=== PATIENT | male | born 1980 | race Caucasian/White ===

== ENCOUNTER 2017-01-16 07:41 | Observation (INO) | payer MEDICAID ==
[2017-01-16 07:54] VITALS: RESP 16
[2017-01-16 08:01] LABS: % IMMATURE GRANULYOCYTES 0.5 % (0.0-1.1); ABSOLUTE IMMATURE GRANULOCYTES 0.03 10^3/uL (0.00-0.10); ADD DIFF? NO; ADD MORPH? NO; ADD SCAN? NO; ATYPICAL LYMPHOCYTE FLAG 0 (0-99); FRAGMENT RBC FLAG 0 (0-99); HEMATOCRIT 49.6 % (40.0-51.0); HEMOGLOBIN 17.2 g/dL (13.7-17.5); LEFT SHIFT FLG 0 (0-99); LIPEMIA HEMOLYSIS FLAG 90 (0-99); MEAN CELL HEMOGLOBIN CONCENTR. 34.7 g/dL (32.4-36.7); MEAN PLATELET VOLUME 8.9 fL (8.7-11.7); PLATELET CLUMPS FLAG 0 (0-99); PLATELET COUNT 306 10^3/uL (150-400); RED BLOOD CELL COUNT 5.22 10^6/uL (4.40-6.38); RED CELL DISTRIBUTION WIDTH 12.4 % (11.5-15.2)
--- NOTE | 2017-01-16 08:02 | CPEKG ---
Heart Rate: 96 RR Interval: 625 P-R Interval: 176 QRSD Interval: 82 QT Interval: 348 QTC Interval: 440 P [place]: 55 QRS [place]: 29 T Wave [place]: 36 EKG Severity - NORMAL ECG - EKG Impression: SINUS RHYTHM Electronically Signed By: Claire Cazares 16-Jan-2017 16:53:33
[2017-01-16 08:25] LABS: ANION GAP 12 mEq/L (8-16); CALCIUM 10.5 mg/dL (8.5-10.4); CARBON DIOXIDE 24 mEq/l (22-31); CHLORIDE 103 mEq/L (97-110); CREATININE 0.8 mg/dL (0.7-1.3); GLOMERULAR FILTRATION RATE > 60; GLUCOSE 100 mg/dL (70-100); POTASSIUM 4.2 mEq/L (3.5-5.2); SODIUM 139 mEq/L (134-144)
[2017-01-16 08:36] LABS: TROPONIN I < 0.012 ng/mL (0-0.034)
--- NOTE | 2017-01-16 08:40 | EDPHY ---
HPI/HX/ROS/PE/MDM Narrative: CHIEF COMPLAINT: Chest discomfort HISTORY OF PRESENT ILLNESS: This patient is a 36 year old man, with a history of anxiety and family history of coronary disease, presenting with acute left- sided chest pressure, onset last night while at work. The pressure has been constant and waxing and waning since onset, rated 5-6/10 at the most severe. The chest pressure caused him to become anxious, which precipitated mild shortness of breath. The patient's anxiety improved once EMS arrived, and subsequently the chest pressure also improved. The pressure is dull and mild in severity currently. The patient's past anxiety attacks have presented with hyperventilation and hand cramping. He had no hand cramping or paresthesia last night. He has never had chest discomfort associated with anxiety in the past. Patient denies any GI symptoms. REVIEW OF SYSTEMS: Aside from elements discussed in the HPI, a comprehensive 10-point review of systems was reviewed and is negative. Insomnia for the last two nights, onset after using methamphetamine two days ago. PAST MEDICAL HISTORY: Hypertension (previously on medication, but on none currently), no diagnosed history of hyperlipidemia, denies history of thromboembolic disease. FAMILY MEDICAL HISTORY: Father had [place] at 53 years old SOCIAL HISTORY: Works in a [employer] kitchen, in the overnight shift. PCP is at the [facility]. Non-smoker, alcoholism, admits to methamphetamine two days ago, denies consistent illicit drug abuse. VITAL SIGNS: Reviewed by me GENERAL: Well-developed, well-nourished, slightly anxious, no respiratory distress. HEENT: Atraumatic. Eyes: No icterus, no injection. Mouth: moist mucous membranes. No erythema or lesions. Neck: supple with no adenopathy. LUNGS: Clear to auscultation bilaterally, no wheezes, rhonchi or rales. CARDIAC: Tachycardic and regular, no rubs, murmurs or gallops. ABDOMEN: Soft, nontender, nondistended, bowel sounds normal. BACK: No CVA tenderness. EXTREMITIES: No trauma. Bilateral lower extremity erythema with trace edema. Range of motion is normal throughout. NEURO: Alert and oriented, grossly nonfocal. SKIN: Warm and dry, no rash. PSYCHIATRIC: Normal mentation, no agitation. Portions of this note were transcribed by a medical laboratory scientist. I personally performed a history, physical exam, medical decision making, and confirmed accuracy of information the transcribed note. ED Course: An IV has been established. He received 324mg aspirin PO by EMS. Chest x-ray interpreted by myself demonstrates query bronchitis. 12-lead EKG interpreted by myself demonstrates sinus rhythm, rate 96, no acute ischemic changes. See formal report in [facility] for interpretation. Troponin is negative, bloodwork is normal. With the patient's family history and history of methamphetamine abuse, I have paged cardiology for consult and to arrange further testing. I consulted with Dr. Acosta at 0930. He recommends admission to [facility] for inpatient workup. The patient will be admitted. 0940: I consulted with the hospitalist service. Dr. Duron accepts admission. MDM: After history and physical examination, the differential for chest pain was considered, including but not limited to, myocardial ischemia, acute coronary syndrome, pulmonary embolus, chest wall pain, pleural inflammation and pulmonary infectious causes. - Data Points Imaging Results: Imaging Impressions Chest X-Ray 01/16/17 07:56 Impression: Chest negative for acute abnormality. Laboratory Results: Laboratory Results 01/16/17 07:50 01/16/17 07:50 01/16/17 01/16/17 07:50 07:50 WBC 6.02 10^3/uL 10^3/uL (3.80-9.50) RBC 5.22 10^6/uL 10^6/uL (4.40-6.38) Hgb 17.2 g/dL g/dL (13.7-17.5) Hct 49.6 % % (40.0-51.0) MCV 95.0 fL fL (81.5-99.8) MCH 33.0 pg pg (27.9-34.1) MCHC 34.7 g/dL g/dL (32.4-36.7) RDW 12.4 % % (11.5-15.2) Plt Count 306 10^3/uL 10^3/uL (150-400) MPV 8.9 fL fL (8.7-11.7) Neut % (Auto) 57.3 % % (39.3-74.2) Lymph % (Auto) 27.6 % % (15.0-45.0) [place] % (Auto) 13.3 % H % (4.5-13.0) Eos % (Auto) 0.8 % % (0.6-7.6) Baso % (Auto) 0.5 % % (0.3-1.7) Nucleat RBC Rel Count 0.0 % % (0.0-0.2) Absolute Neuts (auto) 3.45 10^3/uL 10^3/uL (1.70-6.50) Absolute Lymphs (auto) 1.66 10^3/uL 10^3/uL (1.00-3.00) Absolute Monos (auto) 0.80 10^3/uL 10^3/uL (0.30-0.80) Absolute Eos (auto) 0.05 10^3/uL 10^3/uL (0.03-0.40) Absolute Basos (auto) 0.03 10^3/uL 10^3/uL (0.02-0.10) Absolute Nucleated RBC 0.00 10^3/uL 10^3/uL (0-0.01) Immature Gran % 0.5 % % (0.0-1.1) Immature Gran # 0.03 10^3/uL 10^3/uL (0.00-0.10) Sodium 139 mEq/L mEq/L (134-144) Potassium 4.2 mEq/L mEq/L (3.5-5.2) Chloride 103 mEq/L mEq/L (97-110) Carbon Dioxide 24 mEq/l mEq/l (22-31) Anion Gap 12 mEq/L mEq/L (8-16) BUN 11 mg/dL mg/dL (7-23) Creatinine 0.8 mg/dL mg/dL (0.7-1.3) Estimated GFR > 60 Glucose 100 mg/dL mg/dL (70-100) Calcium 10.5 mg/dL H mg/dL (8.5-10.4) Troponin I < 0.012 ng/mL ng/mL (0-0.034) Medications Given: Discontinued Medications Sodium Chloride (Ns) 1,000 mls @ 0 mls/hr IV ONCE ONE PRN Reason: Wide Open Stop: 01/16/17 08:56 Last Admin: 01/16/17 09:05 Dose: 1,000 mls Sodium Chloride (Ns) 1,000 mls @ 3,000 mls/hr IV ONCE ONE Stop: 01/16/17 10:16 Last Admin: 01/16/17 11:40 Dose: Not Given Lorazepam (Ativan Injection) 1 mg IVP EDNOW ONE Stop: 01/16/17 08:57 Last Admin: 01/16/17 09:05 Dose: 1 mg General Time Seen by Provider: 01/16/17 08:12 Initial Vital Signs: Initial Vital Signs Temperature (C) 36.8 C 01/16/17 07:53 Heart Rate 89 01/16/17 07:53 Respiratory Rate 16 01/16/17 07:53 Blood Pressure 164/102 H 01/16/17 07:53 O2 Sat (%) 94 01/16/17 07:53 O2 Delivery Mode Room Air Allergies/Adverse Reactions: No Known Allergies Allergy (Verified 11/07/14 22:03) Home Medications: Medication Instructions Recorded NK [No Known Home Meds] 01/16/17 Departure - Departure Disposition: [facility] Inpatient Acute Clinical Impression: Chest pain Qualifiers: Chest pain type: other chest pain Qualified Code(s): R07.89 - Other chest pain Condition: Fair Report Scribed for: Claire Cazares Report Scribed by: Yady Sahu Date of Report: 01/16/17 Time of Report: 08:51
[2017-01-16] MEDS ORDERED: NS 1,000 ML IV ONE ×2 (08:55→09:57)
[2017-01-16] MEDS ORDERED: LORazepam 2 MG/ML INJ IVP ONE (08:56)
[2017-01-16] MEDS ORDERED: ONDANSETRON DISINTEGRATING 4 MG TAB PO PRN (09:57)
[2017-01-16] MEDS ORDERED: ACETAMINOPHEN 325 MG TAB PO PRN (09:57)
[2017-01-16] MEDS ORDERED: ONDANSETRON 4 MG/2 ML VIAL IVP PRN (09:57)
[2017-01-16 10:45] VITALS: BP 121/84; PULSE 77; TEMP 97.5; O2SAT 99
--- NOTE | 2017-01-16 12:18 | GHP ---
[f rep st] HISTORY AND PHYSICAL DATE OF ADMISSION: 01/16/2017 CHIEF COMPLAINT: Chest pain. HISTORY OF PRESENT ILLNESS: A 36-year-old male with no significant past medical history, who presen ts with complaints of chest pain, substernal pressure-like, that began approximately 24 hours prior to presentation. Patient reports some radiation to his left arm associated and shortness of breath. Denied any associated palpitations, lightheadedness, vision changes. Denied any nausea, vomiting, abdominal pain, dysuria, hematuria, lower extremity edema or rashes. Did not note any subjective f haven or chills. Of note, the patient had used methamphetamines prior to developing his symptoms. He believes it was close to 24 hours prior, but cannot be specific. The patient reports that he walls s not regularly use stimulants. This was a unique experience for him. PAST MEDICAL HISTORY: None. SOCIAL HISTORY: Negative for tobacco. Patient has a history of alcohol abuse. Reports no recent c onsumption. Reports no regular illicit drug use, but was provided some methamphetamines which he us ed prior to developing his symptoms. Otherwise denies other illicit drugs or marijuana. FAMILY HISTORY: Positive for father who had an [place] in his 50s. REVIEW OF SYSTEMS: A 10-point review of systems is negative with the exception of that reported in the HPI. PHYSICAL EXAMINATION: VITAL SIGNS: Blood pressure 121/84, heart rate 77, respiratory rate 16, temp erature 36.4, 99% on 2 L. GENERAL: This is a healthy-appearing male in no acute distress. HEENT: Eye exam is negative for any icterus. Mucous membranes appear moist. CARDIAC: Patient has regula r rate and rhythm. No murmurs, gallops or rubs. PULMONARY: Patient has good respiratory effort. He is clear to auscultation bilaterally. GASTROINTESTINAL: Positive bowel sounds. Abdomen is soft and nontender in all 4 quadrants. MUSCULOSKELETAL: Negative for any lower extremity edema. SKIN: Negative for any rashes. NEUROLOGIC: Patient is somnolent on my examination, but oriented x3. P SYCHIATRIC: Cooperative on interview and examination. DATA: White count is 6.0, hematocrit 49.6, platelets of 306. Troponin less than 0.012. Sodium 139 , creatinine 0.8. Chest x-ray, which I personally reviewed and interpreted, shows no acute infiltra adri or edema. EKG, which I personally reviewed and interpreted, shows sinus rhythm with a normal ax is and normal intervals. No acute ST-T changes. ASSESSMENT AND PLAN: This is a 36-year-old male presenting with chest pain. 1. Acute chest pain. Suspect likely methamphetamine related. The patient does have a preceding he family history; however, no diabetes, hypertension or hyperlipidemia. We will admit the patient fo r serial troponins and EKGs, and monitor on telemetry. If the patient rules out, would recommend th at he be discharged for outpatient stress testing. After the methamphetamines are out of his system . 2. Polysubstance abuse. We will send a urine drug screen so we can truly understand what the patie nt has in his system. I did discuss this briefly with him, the risk of developing complications rel ated to stimulate use. Not positive the patient truly grasped the message I was conveying. 3. Prophylaxis. Patient can ambulate. 4. Diet. Cardiac. 5. Disposition. I expect him less than 2 midnights. If patient rules out, he will be safe for dis position home. I discussed the case with the emergency room physician. Patient would be appropriate for [facility]. /[id number]/MODL
[2017-01-16 13:48] LABS: PHENCYCLIDINE URINE BCH < 6 ng/ml (NEGATIVE); PHENCYCLIDINE URINE BCH NEGATIVE (NEGATIVE); TETRAHYDROCANNABINOL URINE < 5 ng/mL (NEGATIVE); TETRAHYDROCANNABINOL URINE NEGATIVE (NEGATIVE)
--- NOTE | 2017-01-16 15:42 | GDS ---
[f rep st] DISCHARGE SUMMARY DISCHARGE DIAGNOSES: Include: 1. Chest pain thought secondary to methamphetamine abuse. 2. Polysubstance abuse. HISTORY OF PRESENT ILLNESS: A 36-year-old male who presents with substernal chest discomfort after using methamphetamines. For details of the patient's initial presentation, please see the history a nd physical dated 01/16/2017. CONSULTATIVE SERVICES: Cardiology was curb-sided from the emergency department. PROCEDURES: None. HOSPITAL COURSE: By issue: 1. Acute chest pain. Patient had drug screen test with extremely high levels of amphetamines in hi s urine. His troponin, EKG and telemetry monitoring remained normal. The patient is being discharg ed with strong recommendations against ongoing use of stimulant illicit drugs and recommendations th at he have stress testing performed as an outpatient at [facility] when the drugs are out of his system. 2. Polysubstance abuse. The patient has extremely high levels of amphetamines in his urine, which is clearly quite dangerous. We did discuss the importance of cessation with this patient, ongoing. MEDICATIONS AT THE TIME OF DISPOSITION: Please reference medication reconciliation printed on 01/16. FOLLOWUP APPOINTMENTS: Include with [facility] in the next 2 weeks time after complete cessation of illicit drug use, so that we can verify bed amphetamines are out of his system. I spent greater than 30 minutes in the planning and coordination of this discharge. /[id number]/MODL
== END 2017-01-16 17:05 | disposition home or self-care (01) ==
LOC: EDUNIT# → F2W 10:22
PROVIDERS: ADMIT Internal Medicine; ATTEND Hospitalist
DX: R07.9 Chest pain, unspecified (principal); F15.10 Other stimulant abuse, uncomplicated; F41.9 Anxiety disorder, unspecified; Z82.49 Family history of ischemic heart disease and other diseases of the circulatory system
CPT/HCPCS: 71020; 93005; G0378; 80307; 96374; G0480; J2060

== ENCOUNTER 2017-02-20 03:22 | Emergency (ER) | payer MEDICAID ==
[2017-02-20 03:33] LABS: % IMMATURE GRANULYOCYTES 0.3 % (0.0-1.1); ABSOLUTE IMMATURE GRANULOCYTES 0.02 10^3/uL (0.00-0.10); ADD DIFF? NO; ADD MORPH? NO; ADD SCAN? NO; ATYPICAL LYMPHOCYTE FLAG 10 (0-99); FRAGMENT RBC FLAG 0 (0-99); HEMATOCRIT 47.9 % (40.0-51.0); HEMOGLOBIN 16.2 g/dL (13.7-17.5); LEFT SHIFT FLG 0 (0-99); LIPEMIA HEMOLYSIS FLAG 90 (0-99); MEAN CELL HEMOGLOBIN 32.9 pg (27.9-34.1); MEAN CELL HEMOGLOBIN CONCENTR. 33.8 g/dL (32.4-36.7); MEAN CELL VOLUME 97.2 fL (81.5-99.8); MEAN PLATELET VOLUME 9.3 fL (8.7-11.7); PLATELET CLUMPS FLAG 0 (0-99); PLATELET COUNT 262 10^3/uL (150-400); RED BLOOD CELL COUNT 4.93 10^6/uL (4.40-6.38); RED CELL DISTRIBUTION WIDTH 12.8 % (11.5-15.2)
[2017-02-20 03:36] VITALS: TEMP 97.9
--- NOTE | 2017-02-20 03:36 | CPEKG ---
Heart Rate: 94 RR Interval: 638 P-R Interval: 176 QRSD Interval: 84 QT Interval: 352 QTC Interval: 441 P [place]: 45 QRS [place]: 24 T Wave [place]: 27 EKG Severity - NORMAL ECG - EKG Impression: SINUS RHYTHM Electronically Signed By: Shane Lynch 20-Feb-2017 13:54:07
[2017-02-20 03:43] LABS: ANION GAP 10 mEq/L (8-16); CARBON DIOXIDE 30 mEq/l (22-31); CHLORIDE 104 mEq/L (97-110); GLOMERULAR FILTRATION RATE > 60; GLUCOSE 66 mg/dL (70-100); POTASSIUM 3.7 mEq/L (3.5-5.2); SODIUM 144 mEq/L (134-144)
[2017-02-20 03:55] LABS: TROPONIN I < 0.012 ng/mL (0-0.034)
--- NOTE | 2017-02-20 05:23 | EDPHY ---
H & P Stated Complaint: CP vs anxiety HPI/ROS: HPI The patient presents with chest pain which has been present for the last several hours which started slowly and is getting progressively worse. He says the pain began at about 3:00 p.m., he describes it as a left-sided pressure which is moderate in severity without radiation. He does admit to drinking alcohol and using methamphetamine recently. He says this pain feels similar to his prior episodes. He was admitted January 16 for similar pain in the setting of methamphetamine abuse. His workup was unremarkable. He was advised to stop using. [facility]. He is concerned because for the last 1 week he has noticed bilateral lower extremity edema. He does not have any shortness of breath, dyspnea on exertion, orthopnea or PND.. REVIEW OF SYSTEMS Constitutional: No fever, no chills. Eyes: No discharge. ENT: No sore throat. Cardiovascular: Positive for chest pain, no palpitations. Respiratory: No cough, no shortness of breath. Gastrointestinal: No abdominal pain, no vomiting. Genitourinary: No hematuria. Musculoskeletal: No back pain. Skin: No rashes. Neurological: No headache. PMHx: Anxiety Soc Hx: Alcohol use, methamphetamine use PHYSICAL General Appearance: Alert, no distress Eyes: Pupils equal and round no pallor or injection ENT, Mouth: Mucous membranes moist Respiratory: There are no retractions, lungs are clear to auscultation Cardiovascular: Regular rate and rhythm Gastrointestinal: Abdomen is soft and non-tender, no masses, bowel sounds normal Neurological: A&O, moves all extremities Skin: Warm and dry, no rashes Musculoskeletal: Neck is supple non tender Extremities: symmetrical, trace lower extremity edema bilaterally Psychiatric: Patient is oriented X 3, there is no agitation Source: Patient, EMS - Personal History Current Tetanus Diphtheria and Acellular Pertussis (TDAP): Yes Tetanus Vaccine Date: 01/30/13 - Medical/Surgical History Hx Asthma: No Hx Chronic Respiratory Disease: No Hx Diabetes: No Hx Cardiac Disease: No Hx Renal Disease: No Hx Cirrhosis: No Hx Alcoholism: Yes Hx HIV/AIDS: No Hx Splenectomy or Spleen Trauma: No Other PMH: BIPOLAR, ANXIETY, ETOH WD SEIZURES. - Social History Smoking Status: Never smoked Constitutional: Initial Vital Signs Temperature (C) 36.6 C 05/27/17 03:28 Heart Rate 92 02/20/17 03:28 Respiratory Rate 16 02/20/17 03:28 Blood Pressure 144/106 H 02/20/17 03:28 O2 Sat (%) 96 02/20/17 03:28 O2 Delivery Mode Room Air Allergies/Adverse Reactions: No Known Allergies Allergy (Verified 02/20/17 03:28) Home Medications: Medication Instructions Recorded NK [No Known Home Meds] 01/16/17 Medical Decision Making - Diagnostics EKG Interpretation: EKG: Complete interpretation has been separately recorded in the [facility] archive. Summary impression: Normal sinus rhythm Imaging Results: chest x-ray one view shows no cardiomegaly, no infiltrate, interpreted by me, radiology interpretation is pending. Differential Diagnosis: This is a 36-year-old man with history of methamphetamine induced chest pain who presents from home with chest pain for the last 1 day. This feels similar to his prior episodes. He was recently admitted for this and had a normal evaluation. Differential diagnosis includes methamphetamine abuse, Anxiety, less likely ACS, pulmonary embolism, pneumothorax. In the emergency room, the patient was monitored. He had no recurrence of his chest pain actually felt much better. labs and studies, including troponin were all normal. I have encouraged him to stop his drug use as I feel this is contributing to his pain. He did mention that he has some swelling of his lower extremities and I have examined him he has 1+ lower extremity edema. He does not have any cardiomegaly on his chest x-ray and a doubt he has CHF. This can be followed up as an outpatient with [facility]. - Data Points Laboratory Results: Laboratory Results 02/20/17 03:20 02/20/17 03:20 Departure - Departure Disposition: Home, Routine, Self-Care Clinical Impression: Chest pain Qualifiers: Chest pain type: unspecified Qualified Code(s): R07.9 - Chest pain, unspecified Condition: Good Instructions: Chest Pain (ED) Additional Instructions: Please stop using methamphetamine. This is likely contributing to her chest pain. Referrals: [facility] [Provider Group] - As per Instructions
[2017-02-20 05:41] VITALS: BP 118/86; PULSE 88; RESP 20; O2SAT 97
== END 2017-02-20 05:40 | disposition home or self-care (01) ==
LOC: EDUNIT#
DX: R07.89 Other chest pain (principal)

== ENCOUNTER 2017-04-04 08:10 | Emergency (ER) | payer MEDICAID ==
[2017-04-04 08:25] VITALS: RESP 16; TEMP 98.6
--- NOTE | 2017-04-04 08:37 | CPEKG ---
Heart Rate: 101 RR Interval: 594 P-R Interval: 184 QRSD Interval: 84 QT Interval: 336 QTC Interval: 436 P [place]: 57 QRS [place]: 40 T Wave [place]: 41 EKG Severity - OTHERWISE NORMAL ECG - EKG Impression: SINUS TACHYCARDIA Electronically Signed By: Rafael Jean 04-Apr-2017 09:30:30
[2017-04-04] MEDS ORDERED: NS 1,000 ML IV ONE (08:45)
[2017-04-04] MEDS ORDERED: LORazepam 2 MG/ML INJ IVP ONE (08:45)
--- NOTE | 2017-04-04 08:45 | EDPHY ---
H & P Stated Complaint: L cp sob on and off x 2 mo. worse x 2 days, bilat lle edema x 1 mo - Personal History Current Tetanus/Diphtheria Vaccine: Unsure Current Tetanus Diphtheria and Acellular Pertussis (TDAP): Unsure Tetanus Vaccine Date: 01/30/13 - Medical/Surgical History Hx Asthma: No Hx Chronic Respiratory Disease: No Hx Diabetes: No Hx Cardiac Disease: No Hx Renal Disease: No Hx Cirrhosis: No Hx Alcoholism: Yes Hx HIV/AIDS: No Hx Splenectomy or Spleen Trauma: No Other PMH: BIPOLAR, ANXIETY, etoh w/d seizures - Social History Smoking Status: Never smoked Time Seen by Provider: 04/04/17 08:27 HPI/ROS: CHIEF COMPLAINT: Chest pain, bilateral lower extremity edema x2 months HISTORY OF PRESENT ILLNESS: 36-year-old male with prior history of alcoholism, arrives via private vehicle stating that for the past 2 months he has been experiencing nonexertional, nonpleuritic chest pain without dyspnea as well as bilateral lower extremity edema. He has been seen by his primary care provider [facility] but informs me that there recent blood work that was obtained was lost. He has by enlarged decreased his daily alcohol use, states that he has also started using daily methamphetamine tablets in order to moderate his symptoms and and/or to function and go to work. He denies: Dyspnea, back pain , flank pain, urinary abnormality, headache, syncope, near syncope, diaphoresis , exertional chest pain or exertional dyspnea . PRIMARY CARE PROVIDER: [facility] REVIEW OF SYSTEMS: A ten point review of systems was performed and is negative with the exception of the items mentioned in the HPI PAST MEDICAL & SURGICAL HISTORY: Alcoholism SOCIAL HISTORY: Daily alcohol use. Daily methamphetamine use PHYSICAL EXAM (Prior to examination, patient consented to physical exam, hands were washed and my usual and customary physical exam procedures followed) 1) GENERAL: Well-developed, well-nourished, alert and oriented. Appears anxious. Rapid speech.. 2) HEAD: Normocephalic, atraumatic 3) HEENT: Pupils equal, round, reactive to light bilaterally. Sclera anicteric. 4) NECK: Full range of motion, no a bruit. 5) LUNGS: Clear auscultation bilaterally, no wheezes, no rhonchi, no retractions. 6) HEART: Regular rate and rhythm, no murmur, no heave, no gallop. 7) ABDOMEN: No guarding, no rebound, no focal tenderness, negative McBurney's, negative King's, negative Rovsing's, negative peritoneal sign, 8) MUSCULOSKELETAL: Moving all extremities, no focal areas of tenderness, no obvious trauma. No peripheral edema or discoloration. Negative Homans no palpable cord bilaterally. DP PT pulses present and brisk bilaterally. Normal color normal temperature distally. Brisk capillary refill 9) BACK: No CVA tenderness. 10) SKIN: No rash, no petechiae. 11) Psychiatric: Patient is oriented X 3, there is no agitation. DIFFERENTIAL DIAGNOSIS: In no particular order, including but not limited to myocardial ischemia, pulmonary embolus, chest wall pain, pleural inflammation and pulmonary infectious causes. (Isaiah Rivera) Constitutional: Initial Vital Signs Temperature (C) 37.0 C 04/04/17 08:20 Heart Rate 107 H 04/04/17 08:20 Respiratory Rate 16 04/04/17 08:20 Blood Pressure 118/87 H 04/04/17 08:20 O2 Sat (%) 97 04/04/17 08:20 O2 Delivery Mode Room Air Allergies/Adverse Reactions: No Known Allergies Allergy (Verified 02/20/17 03:28) Home Medications: Medication Instructions Recorded NK [No Known Home Meds] 01/16/17 Medical Decision Making - Diagnostics EKG Interpretation: EKG interpreted by me shows sinus tachycardia. Normal interval and axis. QRS is normal there is no significant ST elevation or depression. No arrhythmia. Ventricular response is 101 (Rafael Jean) Imaging Results: Imaging Impressions Chest X-Ray 04/04/17 08:43 IMPRESSION: Normal chest x-ray. ED Course/Re-evaluation: This patient has been re-evaluated with serial examinations case discussed with secondary supine position Dr. Rafael Jean in the ER. The patient complains of ongoing chest pain for the past 2 months in the presence of daily alcohol and daily methamphetamine use. Denies cocaine use. Multiple diagnostic studies were obtained on the patient including negative troponin, negative BNP, negative D-dimer negative chest x-ray, sinus tachycardia on the EKG. I think that [place] is less than likely in this patient. Doubt CHF. Doubt pulmonary embolus in the presence of negative D-dimer and low to moderate pretest suspicion. Think the patient can be discharged. I recommended alcohol moderation cessation methamphetamine use. He has an upcoming appointment the [facility] where he will speak with his care provider there regarding cessation of this also has upcoming appoint with psychiatrist Dr. Fernández. He denies suicidal homicidal ideation. He feels comfortable being discharged. Usual and customary discharge precautions and instructions provided (Isaiah Rivera) I did not see this patient while he was in the emergency department. However his care was discussed with the PA while the patient was in the department. I agree with treatment plan and management (Rafael Jean) - Data Points Laboratory Results: Laboratory Results 04/04/17 08:25 04/04/17 08:25 04/04/17 04/04/17 04/04/17 08:25 08:25 08:25 WBC 7.27 10^3/uL 10^3/uL (3.80-9.50) RBC 4.63 10^6/uL 10^6/uL (4.40-6.38) Hgb 15.5 g/dL g/dL (13.7-17.5) Hct 44.0 % % (40.0-51.0) MCV 95.0 fL fL (81.5-99.8) MCH 33.5 pg pg (27.9-34.1) MCHC 35.2 g/dL g/dL (32.4-36.7) RDW 13.1 % % (11.5-15.2) Plt Count 249 10^3/uL 10^3/uL (150-400) MPV 8.8 fL fL (8.7-11.7) Neut % (Auto) 49.7 % % (39.3-74.2) Lymph % (Auto) 31.6 % % (15.0-45.0) [place] % (Auto) 12.4 % % (4.5-13.0) Eos % (Auto) 5.4 % % (0.6-7.6) Baso % (Auto) 0.6 % % (0.3-1.7) Nucleat RBC Rel Count 0.0 % % (0.0-0.2) Absolute Neuts (auto) 3.62 10^3/uL 10^3/uL (1.70-6.50) Absolute Lymphs (auto) 2.30 10^3/uL 10^3/uL (1.00-3.00) Absolute Monos (auto) 0.90 10^3/uL H 10^3/uL (0.30-0.80) Absolute Eos (auto) 0.39 10^3/uL 10^3/uL (0.03-0.40) Absolute Basos (auto) 0.04 10^3/uL 10^3/uL (0.02-0.10) Absolute Nucleated RBC 0.00 10^3/uL 10^3/uL (0-0.01) Immature Gran % 0.3 % % (0.0-1.1) Immature Gran # 0.02 10^3/uL 10^3/uL (0.00-0.10) D-Dimer < 0.27 ug/mLFEU ug/mLFEU (0.00-0.50) Sodium 144 mEq/L mEq/L (134-144) Potassium 3.7 mEq/L mEq/L (3.5-5.2) Chloride 108 mEq/L mEq/L (97-110) Carbon Dioxide 21 mEq/l L mEq/l (22-31) Anion Gap 15 mEq/L mEq/L (8-16) BUN 12 mg/dL mg/dL (7-23) Creatinine 0.9 mg/dL mg/dL (0.7-1.3) Estimated GFR > 60 Glucose 79 mg/dL mg/dL (70-100) Calcium 9.3 mg/dL mg/dL (8.5-10.4) Troponin I < 0.012 ng/mL ng/mL (0-0.034) NT-Pro-B Natriuret Pep < 11 pg/mL pg/mL (0-125) Medications Given: Discontinued Medications Sodium Chloride (Ns) 1,000 mls @ 0 mls/hr IV ONCE ONE PRN Reason: Wide Open Stop: 04/04/17 08:46 Last Admin: 04/04/17 09:25 Dose: 1,000 mls Lorazepam (Ativan Injection) 1 mg IVP EDNOW ONE Stop: 04/04/17 08:46 Last Admin: 04/04/17 09:25 Dose: 1 mg Departure - Departure Disposition: Home, Routine, Self-Care Clinical Impression: Chest pain Qualifiers: Chest pain type: other chest pain Qualified Code(s): R07.89 - Other chest pain Condition: Good Instructions: Chest Pain (ED) Additional Instructions: Seek medical attention if you develop new or worsening chest pain, if you develop new or worsening shortness of breath, or any other symptoms that concern you. Please consider long-term sobriety from alcohol and please discontinue methamphetamine use Referrals: Natalya Titus PAC [Primary Care Provider] - As per Instructions
[2017-04-04 08:57] LABS: ANION GAP 15 mEq/L (8-16); CALCIUM 9.3 mg/dL (8.5-10.4); CARBON DIOXIDE 21 mEq/l (22-31); CHLORIDE 108 mEq/L (97-110); CREATININE 0.9 mg/dL (0.7-1.3); GLOMERULAR FILTRATION RATE > 60; GLUCOSE 79 mg/dL (70-100); POTASSIUM 3.7 mEq/L (3.5-5.2); SODIUM 144 mEq/L (134-144)
[2017-04-04 09:05] LABS: % IMMATURE GRANULYOCYTES 0.3 % (0.0-1.1); ABSOLUTE IMMATURE GRANULOCYTES 0.02 10^3/uL (0.00-0.10); ADD DIFF? NO; ADD MORPH? NO; ADD SCAN? NO; ATYPICAL LYMPHOCYTE FLAG 0 (0-99); FRAGMENT RBC FLAG 0 (0-99); HEMOGLOBIN 15.5 g/dL (13.7-17.5); LEFT SHIFT FLG 0 (0-99); LIPEMIA HEMOLYSIS FLAG 90 (0-99); MEAN CELL HEMOGLOBIN 33.5 pg (27.9-34.1); MEAN CELL HEMOGLOBIN CONCENTR. 35.2 g/dL (32.4-36.7); MEAN PLATELET VOLUME 8.8 fL (8.7-11.7); PLATELET CLUMPS FLAG 10 (0-99); PLATELET COUNT 249 10^3/uL (150-400); RED BLOOD CELL COUNT 4.63 10^6/uL (4.40-6.38); RED CELL DISTRIBUTION WIDTH 13.1 % (11.5-15.2)
[2017-04-04 09:09] LABS: TROPONIN I < 0.012 ng/mL (0-0.034)
[2017-04-04 10:39] VITALS: BP 117/85; PULSE 80; O2SAT 96
== END 2017-04-04 10:39 | disposition home or self-care (01) ==
DX: R07.89 Other chest pain (principal)
CPT/HCPCS: 96374; J2060

== ENCOUNTER 2017-04-05 01:00 | Emergency (ER) | payer MEDICAID ==
[2017-04-05] MEDS ORDERED: LORazepam 2 MG/ML INJ IVP ONE (01:03)
[2017-04-05] MEDS ORDERED: NS 2,000 ML IV ONE (01:03)
--- NOTE | 2017-04-05 01:08 | EDPHY ---
H & P HPI/ROS: HPI CHIEF COMPLAINT: Anxiety, methamphetamine abuse, alcohol HISTORY OF PRESENT ILLNESS: This is a 36-year-old male, was here earlier in the day with anxiety methamphetamine use and alcohol. Presents back to the emergency room by EMS after being discharged from the emergency room he went to his house and his with his buddies and smoked a large amount of methamphetamine as well as drank alcohol. He now presents to the emergency room stating that he feels very anxious any seeing things. Denies any chest pain or shortness of breath. It is noted he is tachycardic and anxious upon arrival. Hypertensive. Past Medical History: Methamphetamine abuse, alcohol abuse, polysubstance abuse Past Surgical History: No recent surgery Social History: Daily use of alcohol, daily use of methamphetamine Family History: Noncontributory ROS REVIEW OF SYSTEMS: A comprehensive 10 point review of systems is otherwise negative aside from elements mentioned in the history of present illness. Exam Constitutional appears anxious triage nursing summary reviewed, vital signs reviewed, awake/alert. Eyes normal conjunctivae and sclera, EOMI, PERRLA. HENT normal inspection, atraumatic, moist mucus membranes, no epistaxis, neck supple/ no meningismus, no raccoon eyes. Respiratory clear to auscultation bilaterally, normal breath sounds, no respiratory distress, no wheezing. Cardiovascular tachycardic, regular rhythm, no murmur, no edema, distal pulses normal. Gastrointestinal soft, non-tender, no rebound, no guarding, normal bowel sounds, no distension, no pulsatile mass. Genitourinary no CVA tenderness. Musculoskeletal no midline vertebral tenderness, full range of motion, no calf swelling, no tenderness of extremities, no meningismus, good pulses, neurovascularly intact. Skin pink, warm, & sweaty, no rash, skin atraumatic. Neurologic awake, alert and oriented x 3, AAOx3, moves all 4 extremities equally, motor intact, sensory intact, CN II-XII intact, normal cerebellar, normal vision, normal speech. Psychiatric anxious Heme/Lymph/Immune no lymphadenopathy. Differential Diagnosis: Includes but is not limited to in a particular order, methamphetamine abuse, electrolyte disturbance, dehydration, acute anxiety, alcohol intoxication Medical Decision Making: Plan for this patient IV establishment, check blood work, full cardiac surgeon, EKG due to tachycardia, IV fluid bolus, IV Ativan for anxiety. Drug screen. Re-evaluation: 0118AM: Patient's up out of his room he pulled out his IV. He ripped off the monitor. He screaming at staff in the hallway. I asked him kindly please to go back to his room so that we can help him. I have ordered him 2 mg IV Ativan for acute anxiety and agitation. EKG interpretation by me on record in [employer] system. Impression time of EKG 1:25 a.m., sinus rhythm rate of 88. No acute ischemic changes appreciated. 0158AM: Patient was given 2 mg IV Ativan. Current heart rate 92. Blood pressure 153/90. Pulse ox 98% room air. Patient is sleeping. 0338AM: Re-evaluation at this time this patient is resting comfortably normal vital signs. Ambulated well to the bathroom without any difficulty. Tells me his eye is completely resolved after 2 mg IV Ativan. He is in no acute distress. Resting comfortably. He is agreeable on discharge. Again I did recommend that he stop doing methamphetamine as it can be dangerous cause acute psychosis cause tachycardia and cause anxiety. He understands refrain from taking methamphetamine. Source: Patient, EMS - Personal History Tetanus Vaccine Date: 01/30/13 - Medical/Surgical History Hx Asthma: No Hx Chronic Respiratory Disease: No Hx Diabetes: No Hx Cardiac Disease: No Hx Renal Disease: No Hx Cirrhosis: No Hx Alcoholism: Yes Hx HIV/AIDS: No Hx Splenectomy or Spleen Trauma: No Other PMH: BIPOLAR, ANXIETY, etoh w/d seizures - Social History Smoking Status: Never smoked Constitutional: Initial Vital Signs Temperature (C) 36.8 C 04/05/17 01:00 Heart Rate 117 H 04/05/17 01:00 Respiratory Rate 24 H 04/05/17 01:00 Blood Pressure 168/98 H 04/05/17 01:00 O2 Sat (%) 90 L 04/05/17 01:00 O2 Delivery Mode Room Air O2 (L/minute) 2 Allergies/Adverse Reactions: No Known Allergies Allergy (Verified 02/20/17 03:28) Home Medications: Medication Instructions Recorded NK [No Known Home Meds] 01/16/17 Medical Decision Making - Data Points Laboratory Results: Laboratory Results 04/05/17 01:05 04/05/17 01:05 04/05/17 04/05/17 04/05/17 03:30 01:05 01:05 WBC 7.21 10^3/uL 10^3/uL (3.80-9.50) RBC 4.54 10^6/uL 10^6/uL (4.40-6.38) Hgb 15.3 g/dL g/dL (13.7-17.5) Hct 42.8 % % (40.0-51.0) MCV 94.3 fL fL (81.5-99.8) MCH 33.7 pg pg (27.9-34.1) MCHC 35.7 g/dL g/dL (32.4-36.7) RDW 13.0 % % (11.5-15.2) Plt Count 259 10^3/uL 10^3/uL (150-400) MPV 9.1 fL fL (8.7-11.7) Neut % (Auto) 51.7 % % (39.3-74.2) Lymph % (Auto) 32.7 % % (15.0-45.0) [place] % (Auto) 11.4 % % (4.5-13.0) Eos % (Auto) 3.3 % % (0.6-7.6) Baso % (Auto) 0.6 % % (0.3-1.7) Nucleat RBC Rel Count 0.0 % % (0.0-0.2) Absolute Neuts (auto) 3.73 10^3/uL 10^3/uL (1.70-6.50) Absolute Lymphs (auto) 2.36 10^3/uL 10^3/uL (1.00-3.00) Absolute Monos (auto) 0.82 10^3/uL H 10^3/uL (0.30-0.80) Absolute Eos (auto) 0.24 10^3/uL 10^3/uL (0.03-0.40) Absolute Basos (auto) 0.04 10^3/uL 10^3/uL (0.02-0.10) Absolute Nucleated RBC 0.00 10^3/uL 10^3/uL (0-0.01) Immature Gran % 0.3 % % (0.0-1.1) Immature Gran # 0.02 10^3/uL 10^3/uL (0.00-0.10) Sodium 146 mEq/L H mEq/L (134-144) Potassium 3.4 mEq/L L mEq/L (3.5-5.2) Chloride 109 mEq/L mEq/L (97-110) Carbon Dioxide 21 mEq/l L mEq/l (22-31) Anion Gap 16 mEq/L mEq/L (8-16) BUN 11 mg/dL mg/dL (7-23) Creatinine 1.0 mg/dL mg/dL (0.7-1.3) Estimated GFR > 60 Glucose 98 mg/dL mg/dL (70-100) Calcium 9.9 mg/dL mg/dL (8.5-10.4) Urine Opiates Screen Pending Urine Barbiturates Pending Ur Phencyclidine Scrn Pending Ur Amphetamine Screen Pending U Benzodiazepines Scrn Pending Urine Cocaine Screen Pending U Marijuana (THC) Screen Pending Ethyl Alcohol < 10 mg/dL mg/dL (0-10) Medications Given: Discontinued Medications Sodium Chloride (Ns) 2,000 mls @ 0 mls/hr IV ONCE ONE PRN Reason: Wide Open Stop: 04/05/17 01:04 Last Admin: 04/05/17 01:22 Dose: 2,000 mls Lorazepam (Ativan Injection) 2 mg IVP EDNOW ONE Stop: 04/05/17 01:04 Last Admin: 04/05/17 01:22 Dose: 2 mg Departure - Departure Disposition: Home, Routine, Self-Care Clinical Impression: Acute anxiety, Methamphetamine abuse Condition: Good Instructions: Methamphetamine Abuse (ED), Anxiety (ED) Additional Instructions: 1. Please stop doing methamphetamine. Referrals: Natalya Titus, PAC [Primary Care Provider] - As per Instructions
[2017-04-05 01:15] LABS: % IMMATURE GRANULYOCYTES 0.3 % (0.0-1.1); ABSOLUTE IMMATURE GRANULOCYTES 0.02 10^3/uL (0.00-0.10); ADD DIFF? NO; ADD MORPH? NO; ADD SCAN? NO; ATYPICAL LYMPHOCYTE FLAG 10 (0-99); FRAGMENT RBC FLAG 0 (0-99); HEMATOCRIT 42.8 % (40.0-51.0); HEMOGLOBIN 15.3 g/dL (13.7-17.5); LEFT SHIFT FLG 0 (0-99); LIPEMIA HEMOLYSIS FLAG 90 (0-99); MEAN CELL HEMOGLOBIN 33.7 pg (27.9-34.1); MEAN CELL HEMOGLOBIN CONCENTR. 35.7 g/dL (32.4-36.7); MEAN CELL VOLUME 94.3 fL (81.5-99.8); MEAN PLATELET VOLUME 9.1 fL (8.7-11.7); PLATELET CLUMPS FLAG 0 (0-99); PLATELET COUNT 259 10^3/uL (150-400); RED BLOOD CELL COUNT 4.54 10^6/uL (4.40-6.38)
--- NOTE | 2017-04-05 01:27 | CPEKG ---
Heart Rate: 88 RR Interval: 682 P-R Interval: 188 QRSD Interval: 96 QT Interval: 380 QTC Interval: 460 P [place]: 68 QRS [place]: 49 T Wave [place]: 39 EKG Severity - NORMAL ECG - EKG Impression: SINUS RHYTHM Electronically Signed By: Bony Cunningham 05-Apr-2017 06:15:32
[2017-04-05 01:42] LABS: ANION GAP 16 mEq/L (8-16); CALCIUM 9.9 mg/dL (8.5-10.4); CARBON DIOXIDE 21 mEq/l (22-31); CHLORIDE 109 mEq/L (97-110); ETHANOL SERUM < 10 mg/dL (0-10); GLOMERULAR FILTRATION RATE > 60; GLUCOSE 98 mg/dL (70-100); POTASSIUM 3.4 mEq/L (3.5-5.2); SODIUM 146 mEq/L (134-144)
[2017-04-05 02:24] VITALS: RESP 16
[2017-04-05 04:56] VITALS: BP 107/71; PULSE 78; TEMP 98.1; O2SAT 96
== END 2017-04-05 04:56 | disposition home or self-care (01) ==
LOC: EDUNIT#
DX: F41.9 Anxiety disorder, unspecified (principal); F15.10 Other stimulant abuse, uncomplicated
CPT/HCPCS: 80305; 96374; G0480; J2060

== ENCOUNTER 2018-03-02 06:04 | Emergency (ER) | payer SELFPAY ==
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
[2018-03-02 06:33] LABS: PLATELET COUNT 288 10^3/uL (150-400)
[2018-03-02] MEDS ORDERED: DIAZEPAM 5 MG TAB PO ONE (16:01)
[2018-03-02] MEDS ORDERED: IBUPROFEN 600 MG TAB PO ONE ×2 (16:11→16:16)
[2018-03-02 16:25] VITALS: BP 133/74
== END 2018-03-02 16:25 | disposition home or self-care (01) ==
DX: F19.10 Other psychoactive substance abuse, uncomplicated (principal); F17.200 Nicotine dependence, unspecified, uncomplicated
CPT/HCPCS: G0480

== ENCOUNTER 2018-03-05 18:02 | Emergency (ER) | payer SELFPAY ==
[2018-03-05 19:56] LABS: PLATELET COUNT 263 10^3/uL (150-400)
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
[2018-03-05] MEDS ORDERED: OLANZapine DISINTEGR 10 MG TAB PO ONE (22:48)
[2018-03-06] MEDS ORDERED: ONDANSETRON DISINTEGRATING 4 MG TAB PO ONE (12:33)
[2018-03-07 08:09] VITALS: BP 119/84
== END 2018-03-07 14:36 | disposition home or self-care (01) ==
LOC: EDUNIT#
DX: F19.10 Other psychoactive substance abuse, uncomplicated (principal); F15.10 Other stimulant abuse, uncomplicated
CPT/HCPCS: 80305; G0480

== ENCOUNTER 2018-12-05 13:06 | Emergency (ER) | payer MEDICAID, OTHER ==
[2018-12-05] MEDS ORDERED: OLANZapine 10 MG/2 ML VIAL IM ONE (13:20)
--- NOTE | 2018-12-05 13:23 | EDPHY ---
H & P Source: Patient, RN/MD, EMS Exam Limitations: Clinical condition - Personal History Tetanus Vaccine Date: 01/30/13 - Medical/Surgical History Hx Asthma: No Hx Chronic Respiratory Disease: No Hx Diabetes: No Hx Cardiac Disease: No Hx Renal Disease: No Hx Cirrhosis: No Hx Alcoholism: Yes Hx HIV/AIDS: No Hx Splenectomy or Spleen Trauma: No Other PMH: BIPOLAR, ANXIETY, etoh w/d seizures - Social History Smoking Status: Never smoked Time Seen by Provider: 12/05/18 13:23 HPI/ROS: HPI: This is a 38-year-old male who presents with Chief Complaint: Paranoia, visual hallucinations, auditory hallucinations Location: psych Quality: Paranoia, visual hallucinations, auditory hallucinations Duration: Unknown Signs and Symptoms: no fever, no nausea, no vomiting, no hematemesis, no blood in stool, no abdominal bloating, no diarrhea, no back pain, no urinary symptoms , no testicular/groin pain, no indigestion, no chest pain, no shortness of breath Timing: Acute on chronic Severity: Severe Context: Patient presents on M1 hold with police after he called the police as he reports that multiple people were in his apartment coming through the ceiling and walking all around him talking and making fun of him. He reports that he has not slept in 4 days. He admits to methamphetamine use daily as well as drinking 4 Locos today. Has a history of bipolar. Patient reports that he is afraid that these people are going to come and get him. He could hear them talking about him. He left his apartment and called the police. + auditory hallucinations, + visual hallucinations, suicidal ideation with a plan , homicidal ideation, + paranoia Modifying Factors: None Comment: ROS: A comprehensive 10 system review of systems is otherwise negative aside from elements mentioned in the history of present illness. MEDICAL/SURGICAL/SOCIAL HISTORY: Medical history: BIPOLAR, ANXIETY, etoh w/d seizures Surgical history: Denies Social history: Lives in an apartment. Nonsmoker. Family history noncontributory. CONSTITUTIONAL: Anxious and agitated, untidy, middle-aged white male, awake and alert, no obvious distress HEENT: Atraumatic and normocephalic, PERRL, EOMI. Nares patent; no rhinorrhea; no nasal mucosal edema. Tympanic membranes clear. Oropharynx clear, no exudate and moist pink mucosa. Airway patent. No lymphadenopathy. No meningismus. Cardiovascular: Normal S1/S2, tachycardia, regular rhythm, without murmur rub or gallop. PULMONARY/CHEST: Symmetrical and nontender. Clear to auscultation bilaterally. Good air movement. No accessory muscle usage. ABDOMEN: Soft, nondistended, nontender, no rebound, no guarding, no peritoneal signs, no masses or organomegaly. No CVAT. EXTREMITIES: 2/2 pulses, strength 5/5, no deformities, no clubbing, no cyanosis or edema. NEUROLOGICAL: no focal neuro deficits. GCS 15. Rapid speech pattern. SKIN: Warm and dry, no erythema. no rash. Good capillary refill. PSYCH: Fair eye contact, + flight of ideas, tangential disorganized thought process, poor insight and judgment, + auditory hallucinations, + visual hallucinations, suicidal ideation with a plan, homicidal ideation, + paranoia (Rina Duenas) Constitutional: Initial Vital Signs Temperature (C) 36.5 C 12/05/18 13:33 Heart Rate 114 H 12/05/18 13:33 Respiratory Rate 20 12/05/18 13:33 Blood Pressure 142/87 H 12/05/18 13:33 O2 Sat (%) 95 12/05/18 13:33 O2 Delivery Mode Room Air Allergies/Adverse Reactions: No Known Allergies Allergy (Verified 12/05/18 13:32) Home Medications: Medication Instructions Recorded NK [No Known Home Meds] 12/05/18 Medical Decision Making ED Course/Re-evaluation: Agree with M1 hold for psychosis. Labs and UDS ordered. Given IM Zyprexa 5 mg. 1515: Labs reviewed. No signs of leukocytosis/anemia/platelet dysfunction/ KAREN. Potassium 3.1; given 40 mEq of potassium supplementation ETOH=39 Urine drug screen negative. 1515: Medically clear for mental health evaluation. 1700: End of Shift. Signed over to Dr. Posada pending mental health evaluation and final disposition. This patient was seen under the supervision of my secondary supervising physician. I evaluated care for this patient with attending. Discussed this patient with Dr. Posada. (Rina Duenas) The patient was evaluated and managed by the physician front end assistant. I have reviewed this chart and I agree with the findings and plan of care as documented , as indicated by my signature. I am the secondary supervising physician. This patient was evaluated by [facility]. It is the impression of the evaluated that he does not meet criteria for inpatient hospitalization. I agree that he is not suicidal, homicidal, or gravely disabled. He admits that he is coming down from methamphetamine and is severely sleep deprived. I anticipate that is hold will be lifted and that he will be discharged from the department. His hold was terminated at 9:50 p.m.. He is sleeping will be discharged when he awakens. (Asia Posada) Differential Diagnosis: Differential diagnosis includes but is not limited to major depression, anxiety disorder, schizophrenia, bipolar disorder, intoxicant use, suicidal ideation, psychosis, terrence. (Rina Duenas) - Data Points Laboratory Results: Laboratory Results 12/05/18 14:15 12/05/18 14:15 12/05/18 12/05/18 12/05/18 14:15 14:15 13:25 WBC 5.53 10^3/uL 10^3/uL (3.80-9.50) RBC 4.78 10^6/uL 10^6/uL (4.40-6.38) Hgb 15.2 g/dL g/dL (13.7-17.5) Hct 44.4 % % (40.0-51.0) MCV 92.9 fL fL (81.5-99.8) MCH 31.8 pg pg (27.9-34.1) MCHC 34.2 g/dL g/dL (32.4-36.7) RDW 12.6 % % (11.5-15.2) Plt Count 287 10^3/uL 10^3/uL (150-400) MPV 8.9 fL fL (8.7-11.7) Neut % (Auto) 60.6 % % (39.3-74.2) Lymph % (Auto) 27.3 % % (15.0-45.0) Ada % (Auto) 11.0 % % (4.5-13.0) Eos % (Auto) 0.5 % L % (0.6-7.6) Baso % (Auto) 0.4 % % (0.3-1.7) Nucleat RBC Rel Count 0.0 % % (0.0-0.2) Absolute Neuts (auto) 3.35 10^3/uL 10^3/uL (1.70-6.50) Absolute Lymphs (auto) 1.51 10^3/uL 10^3/uL (1.00-3.00) Absolute Monos (auto) 0.61 10^3/uL 10^3/uL (0.30-0.80) Absolute Eos (auto) 0.03 10^3/uL 10^3/uL (0.03-0.40) Absolute Basos (auto) 0.02 10^3/uL 10^3/uL (0.02-0.10) Absolute Nucleated RBC 0.00 10^3/uL 10^3/uL (0-0.01) Immature Gran % 0.2 % % (0.0-1.1) Immature Gran # 0.01 10^3/uL 10^3/uL (0.00-0.10) Sodium 142 mEq/L mEq/L (135-145) Potassium 3.1 mEq/L L mEq/L (3.5-5.2) Chloride 110 mEq/L mEq/L (97-110) Carbon Dioxide 18 mEq/l L mEq/l (22-31) Anion Gap 14 mEq/L mEq/L (6-14) BUN 10 mg/dL mg/dL (7-23) Creatinine 0.7 mg/dL mg/dL (0.7-1.3) Estimated GFR > 60 Glucose 100 mg/dL mg/dL (70-100) Calcium 9.4 mg/dL mg/dL (8.5-10.4) Urine Opiates Screen NEGATIVE (NEGATIVE) Urine Barbiturates NEGATIVE (NEGATIVE) Ur Phencyclidine Scrn NEGATIVE (NEGATIVE) Ur Amphetamine Screen NEGATIVE (NEGATIVE) U Benzodiazepines Scrn NEGATIVE (NEGATIVE) Urine Cocaine Screen NEGATIVE (NEGATIVE) U Marijuana (THC) Screen NEGATIVE (NEGATIVE) Ethyl Alcohol 39 mg/dL H mg/dL (0-10) Medications Given: Discontinued Medications Olanzapine (Zyprexa Injection) 5 mg IM EDNOW ONE Stop: 12/05/18 13:21 Last Admin: 12/05/18 13:30 Dose: 5 mg Potassium Chloride (Klor-Con) 40 meq PO ONCE ONE Stop: 12/05/18 15:27 Last Admin: 12/05/18 15:57 Dose: 40 meq Departure - Departure Disposition: Home, Routine, Self-Care Clinical Impression: Alcohol use, Methamphetamine use Psychosis Qualifiers: Psychosis type: unspecified psychosis type Qualified Code(s): F29 - Unspecified psychosis not due to a substance or known physiological condition Condition: Good Instructions: Methamphetamine Abuse (ED) Referrals: NONE *PRIMARY CARE P,. [Primary Care Provider] - As per Instructions [facility],. [Clinic] - As per Instructions
[2018-12-05] MEDS ORDERED: ONDANSETRON DISINTEGRATING 4 MG TAB ONE (14:10)
[2018-12-05 14:25] LABS: PLATELET COUNT 287 10^3/uL (150-400)
[2018-12-05] MEDS ORDERED: POTASSIUM CL 20 MEQ TAB PO ONE (15:26)
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
--- NOTE | 2018-12-05 22:11 | ASMTTCLDSP ---
[facility] Discharge Disposition Disposition: Answers: Discharge If Answers: Yes DISCHARGED: Patient/family given suicide hotline info & SAMHSA brochure? Disposition Notes: Notes: Pt was given resources to [facility] and encouraged to follow up. Discharge Concerns/Recommendations: Notes: In consultation with [facility] ED physician, Asia Posada MD, concurred that pt does not appear to meet 27-65 criteria requiring psychiatric hospitalization as pt does not appear to be an imminent risk of harm to self/others/gravely disabled due to a mental illness condition. Date and time M1 hold 12/05/2018 09:50 PM vacated (time format is hh:mm): Date Signed: 12/05/2018 10:10 PM Electronically Signed By:Trang Hubbard
[2018-12-06 05:58] VITALS: BP 118/87
== END 2018-12-06 06:10 | disposition home or self-care (01) ==
LOC: EEVIPCON 13:06
DX: F15.90 Other stimulant use, unspecified, uncomplicated (principal); F10.99 Alcohol use, unspecified with unspecified alcohol-induced disorder; F29 Unspecified psychosis not due to a substance or known physiological condition; F31.9 Bipolar disorder, unspecified; F41.9 Anxiety disorder, unspecified
CPT/HCPCS: 80305; G0480

== ENCOUNTER 2018-12-06 18:10 | Emergency (ER) | payer MEDICAID ==
[2018-12-06] MEDS ORDERED: LORazepam 2 MG/ML INJ IVP ONE (18:43)
--- NOTE | 2018-12-06 18:46 | EDPHY ---
H & P Stated Complaint: Meth overdose - Personal History Current Tetanus/Diphtheria Vaccine: Yes Tetanus Vaccine Date: 01/30/13 - Medical/Surgical History Hx Asthma: No Hx Chronic Respiratory Disease: No Hx Diabetes: No Hx Cardiac Disease: No Hx Renal Disease: No Hx Cirrhosis: No Hx Alcoholism: Yes Hx HIV/AIDS: No Hx Splenectomy or Spleen Trauma: No Other PMH: BIPOLAR, ANXIETY, etoh w/d seizures - Social History Smoking Status: Never smoked Time Seen by Provider: 12/06/18 18:42 HPI/ROS: CHIEF COMPLAINT: "I'm tweaking hard" HISTORY OF PRESENT ILLNESS: 38-year-old male familiar to myself and emergency department staff, on M1 hold admits to methamphetamine abuse. He denies suicidal or homicidal ideation. PRIMARY CARE PROVIDER: REVIEW OF SYSTEMS: 10 systems reviewed and negative with the exception of the elements mentioned in the history of present illness PAST MEDICAL & SURGICAL HISTORY: No pertinent medical or surgical history SOCIAL HISTORY:Self disclosed methamphetamine abuse PHYSICAL EXAM (Prior to examination, patient consented to physical exam, hands were washed and my usual and customary physical exam procedures followed) 1) GENERAL: poorly kept, diaphoretic, 4 point restraints, agitated, grinding he 2) HEAD: Normocephalic, atraumatic 3) HEENT: Pupils equal, round, reactive to light bilaterally. Sclera anicteric. 4) NECK: Full range of motion, no meningeal signs. 5) LUNGS: Clear auscultation bilaterally, no wheezes, no rhonchi, no retractions. 6) HEART: Regular rate and rhythm, no murmur, no heave, no gallop. 7) ABDOMEN: No guarding, no rebound, no focal tenderness, 8) MUSCULOSKELETAL: No peripheral edema or discoloration. 9) BACK: No CVA tenderness, no midline vertebral tenderness, no fluctuance, no step-off, no obvious trauma, no visual or palpable abnormality. 10) SKIN: No rash, no petechiae. 11) Psychiatric: Patient is oriented X 3, there is no agitation. DIFFERENTIAL DIAGNOSIS: In no particular order including but not limited to acute methamphetamine abuse, rhabdomyolysis, suicidal ideation (Nicole,Isaiah Angie) Constitutional: Initial Vital Signs Temperature (C) 36.8 C 12/06/18 18:21 Heart Rate 135 H 12/06/18 18:21 Respiratory Rate 25 H 12/06/18 18:21 Blood Pressure 153/96 H 12/06/18 18:21 O2 Sat (%) 98 12/06/18 18:21 O2 Delivery Mode Room Air Allergies/Adverse Reactions: No Known Allergies Allergy (Verified 12/06/18 18:32) Home Medications: Medication Instructions Recorded NK [No Known Home Meds] 12/05/18 Medical Decision Making ED Course/Re-evaluation: 6:45 p.m.: Patient is agitated after self disclosed methamphetamine abuse. Will administer IV Ativan, check CK and observe patient. Care of patient under supervision of secondary supervising physician Dr Posada with whom I discussed case. 7:29 p.m.: Patient remains agitated, diaphoretic, needs 4 point restraints after 2 mg of IV Ativan. Will administer further IV fluids and IV Haldol. His CK is normal at this time. Midnight: Care turned over to Dr Cunningham. Patient sleeping (Isaiah Rivera) 0600: Patient has been sleeping after medications earlier in the evening. No acute distress. He is on M1 hold. Has been abusing methamphetamine. Plan for mental health evaluation this morning. 0700: Patient's M1 hold was lifted. Patient continues to be sleepy most likely due to methamphetamine in the medications he received earlier in the evening. Will need more time for sobering. Once more sober he can be safely discharged from the emergency room. Signed over to Dr. Francois at this time, patient sobering from medications/meth. (Bony Cunningham) The patient was evaluated and managed by the physician photographer assistant. I have reviewed this chart and I agree with the findings and plan of care as documented , as indicated by my signature. I am the secondary supervising physician. ( Asia Posada) Other Provider: I assumed care of the patient at 0700. I reassessed the patient at 9:00 a.m.. He is now ambulatory. He has no acute complaints. He would like to be discharged from the emergency department. ( Dillon Francois) The patient was initially evaluated and managed by the physician photographer assistant. I have reviewed this chart and I agree with the findings and plan of care as documented, as indicated by my signature. I am the secondary supervising physician. (Asia Posada) - Data Points Laboratory Results: Laboratory Results 12/06/18 18:55 12/06/18 18:55 12/06/18 22:25 Urine Opiates Screen NEGATIVE (NEGATIVE) Urine Barbiturates NEGATIVE (NEGATIVE) Ur Phencyclidine Scrn NEGATIVE (NEGATIVE) Ur Amphetamine Screen NON-NEGATIVE H (NEGATIVE) U Benzodiazepines Scrn NEGATIVE (NEGATIVE) Urine Cocaine Screen NEGATIVE (NEGATIVE) U Marijuana (THC) Screen NEGATIVE (NEGATIVE) Medications Given: Discontinued Medications Haloperidol Lactate (Haldol Injection) 5 mg IVP EDNOW ONE Stop: 12/06/18 19:29 Last Admin: 12/06/18 19:38 Dose: 5 mg Haloperidol Lactate (Haldol Injection) 5 mg IVP EDNOW ONE Stop: 12/06/18 20:50 Last Admin: 12/06/18 21:06 Dose: 5 mg Sodium Chloride (Ns) 1,000 mls @ 0 mls/hr IV ONCE ONE PRN Reason: Wide Open Stop: 12/06/18 19:29 Last Admin: 12/06/18 19:38 Dose: 1,000 mls Lorazepam (Ativan Injection) 2 mg IVP EDNOW ONE Stop: 12/06/18 18:44 Last Admin: 12/06/18 19:30 Dose: 2 mg Departure - Departure Disposition: Home, Routine, Self-Care Clinical Impression: Methamphetamine abuse Condition: Good Instructions: Methamphetamine Abuse (ED) Additional Instructions: 1. Methamphetamine is very dangerous drug. Highly recommend you stop doing methamphetamine. 2. Please follow up with [facility] 3. Return to the emergency room if you develops worsening symptoms thoughts of wanting to hurt herself or anybody else. Referrals: [facility],. [Clinic] - As per Instructions
[2018-12-06 19:06] LABS: PLATELET COUNT 343 10^3/uL (150-400)
[2018-12-06 19:18] LABS: CREATINE KINASE 301 IU/L (0-224)
[2018-12-06] MEDS ORDERED: NS 1,000 ML IV ONE (19:28)
[2018-12-06] MEDS ORDERED: HALOPERIDOL LACT 5 MG/ML INJ IVP ONE ×2 (19:28→20:49)
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
--- NOTE | 2018-12-07 07:02 | ASMTTCLDSP ---
TLC Discharge Disposition Disposition: Answers: Discharge If Answers: Yes DISCHARGED: Patient/family given suicide hotline info & SAMHSA brochure? Disposition Notes: Notes: Pt stated commitment or ability to keep self safe, denied thoughts of self harm or harm to others. Pt expressed a desire to f/u with [facility]. Pt was given local hotline information and SAMH[employer] brochure After an Attempt and encouraged to follow up with [facility]. Discharge Concerns/Recommendations: Notes: In consultation with [facility] ED physician, Bony Cunningham MD, Dr. Cunningham concurred that pt does not appear to meet 27-65 criteria requiring psychiatric hospitalization as pt does not appear to be an imminent risk of harm to self/others/gravely disabled due to a mental illness condition. Dr. Cunningham provided telephone order read back vacating M1 hold at 0625 hrs. Was patient given the Answers: Not applicable Inpatient Behavioral Health Prohibited Belongings List while in the ED? Psychiatrist vacating M1 Bony Cunningham MD Hold: Date and time M1 hold 12/07/2018 06:25 AM vacated (time format is hh:mm): Type of Hold: Answers: M1/72-hour Hold Hold initiated by: Answers: Police Date Signed: 12/07/2018 07:01 AM Electronically Signed By:Filipe Leonardo
[2018-12-07 09:11] VITALS: BP 122/89
== END 2018-12-07 09:20 | disposition home or self-care (01) ==
LOC: EDUNIT#
DX: F15.10 Other stimulant abuse, uncomplicated (principal); F41.9 Anxiety disorder, unspecified; F31.9 Bipolar disorder, unspecified
CPT/HCPCS: 80305; 96374; J1630; J2060

== ENCOUNTER 2019-01-19 14:53 | Inpatient (IN) | payer MEDICAID, OTHER ==
--- NOTE | 2019-01-19 15:00 | EDPHY ---
H & P Time Seen by Provider: 01/19/19 14:54 HPI/ROS: CHIEF COMPLAINT: Overdose HISTORY OF PRESENT ILLNESS: The patient presents to the ED by ambulance emergently after an overdose on extended release Depakote. He reportedly walked into the [facility] stating that he just overdosed on Depakote. The patient had a bottle of Depakote which was filled 2 days ago with 60 tablets. There are 20 tablets left. The patient was obtained unresponsive per paramedics. The patient did fight when they attempted to establish a 2nd IV. He currently has a nasal airway in. The patient arrives and is nonverbal. He does have an intact gag reflex. He is unable to provide any additional history REVIEW OF SYSTEMS: A comprehensive 10 point review of systems is unobtainable secondary to altered mental status Source: EMS - Personal History Tetanus Vaccine Date: 01/30/13 - Medical/Surgical History Hx Asthma: No Hx Chronic Respiratory Disease: No Hx Diabetes: No Hx Cardiac Disease: No Hx Renal Disease: No Hx Cirrhosis: No Hx Alcoholism: Yes Hx HIV/AIDS: No Hx Splenectomy or Spleen Trauma: No Other PMH: BIPOLAR, ANXIETY, etoh w/d seizures - Social History Smoking Status: Never smoked - Physical Exam Exam: General Appearance: Disheveled, sleepy, withdrawals to pain Eyes: Pupils equal and round no pallor or injection ENT, Mouth: Mucous membranes moist Respiratory: There are no retractions, lungs are clear to auscultation Cardiovascular: Regular rate and rhythm Gastrointestinal: Abdomen is soft and nontender, no masses, bowel sounds normal Neurological: Withdrawals to pain all 4 extremities Skin: Warm and dry, no rashes Musculoskeletal: Neck is supple nontender Extremities: symmetrical, full range of motion Constitutional: Initial Vital Signs Temperature (C) 36.5 C 01/19/19 15:05 Heart Rate 155 H 01/19/19 15:05 Respiratory Rate 18 01/19/19 15:05 Blood Pressure 154/90 H 01/19/19 15:05 O2 Sat (%) 95 01/19/19 15:05 O2 Delivery Mode Room Air Allergies/Adverse Reactions: No Known Allergies Allergy (Verified 12/06/18 18:32) Home Medications: Medication Instructions Recorded Divalproex ER [Depakote ER 500 MG 500 mg PO AD 01/19/19 (*)] OLANZapine [Olanzapine] 15 mg PO HS 01/19/19 Medical Decision Making - Diagnostics EKG Interpretation: EKG: Complete interpretation has been separately recorded in the [employer] archive. Summary impression: Sinus tachycardia, rate 151, prolonged QT interval noted Imaging Results: Imaging Impressions Chest X-Ray 01/19/19 14:57 Impression: Negative. ED Course/Re-evaluation: Patient overdosed on Depakote ER 500 tables - up to 19-20 grams now 2 hours SCIENTIFIC ADVISOR. The patient is placed on a monitor. He is protecting his airway. Talked to [facility] who recommends supportive care and 24 hours of observation. Depokate level q 6 hr to observe for peak. Case #[id number]. They do not recommend activated charcoal given his somnolence. Initial Depakote level is 37. Ammonia is normal. Remainder of electrolyte panel is otherwise unremarkable. Patient underwent several serial examinations in the ED and remained somnolent however continued to protect his airway. Consultation was made with Dr. Aisha Pride from the hospitalist service who will admit the patient for observation this evening. Critical Care Time: Critical care time exclusive of procedures and exclusive of the PA's time was 45 minutes, performed by myself, Dillon Francois MD. The patient presents the emergency department after a significant Depakote overdose resulting in significant CATCHER PLUG depression. The patient will require admission to the intensive care unit. Cardiovascular system is at risk. - Data Points Laboratory Results: Laboratory Results 01/19/19 14:55 01/19/19 14:55 01/19/19 01/19/19 14:55 14:55 WBC 8.11 10^3/uL 10^3/uL (3.80-9.50) RBC 4.87 10^6/uL 10^6/uL (4.40-6.38) Hgb 15.7 g/dL g/dL (13.7-17.5) Hct 45.1 % % (40.0-51.0) MCV 92.6 fL fL (81.5-99.8) MCH 32.2 pg pg (27.9-34.1) MCHC 34.8 g/dL g/dL (32.4-36.7) RDW 13.2 % % (11.5-15.2) Plt Count 204 10^3/uL 10^3/uL (150-400) MPV 9.5 fL fL (8.7-11.7) Neut % (Auto) 62.0 % % (39.3-74.2) Lymph % (Auto) 26.3 % % (15.0-45.0) [place] % (Auto) 11.0 % % (4.5-13.0) Eos % (Auto) 0.1 % L % (0.6-7.6) Baso % (Auto) 0.2 % L % (0.3-1.7) Nucleat RBC Rel Count 0.0 % % (0.0-0.2) Absolute Neuts (auto) 5.03 10^3/uL 10^3/uL (1.70-6.50) Absolute Lymphs (auto) 2.13 10^3/uL 10^3/uL (1.00-3.00) Absolute Monos (auto) 0.89 10^3/uL H 10^3/uL (0.30-0.80) Absolute Eos (auto) 0.01 10^3/uL L 10^3/uL (0.03-0.40) Absolute Basos (auto) 0.02 10^3/uL 10^3/uL (0.02-0.10) Absolute Nucleated RBC 0.00 10^3/uL 10^3/uL (0-0.01) Immature Gran % 0.4 % % (0.0-1.1) Immature Gran # 0.03 10^3/uL 10^3/uL (0.00-0.10) Sodium 137 mEq/L mEq/L (135-145) Potassium 3.6 mEq/L mEq/L (3.5-5.2) Chloride 105 mEq/L mEq/L (97-110) Carbon Dioxide 21 mEq/l L mEq/l (22-31) Anion Gap 11 mEq/L mEq/L (6-14) BUN 12 mg/dL mg/dL (7-23) Creatinine 0.8 mg/dL mg/dL (0.7-1.3) Estimated GFR > 60 Glucose 120 mg/dL H mg/dL (70-100) Calcium 9.5 mg/dL mg/dL (8.5-10.4) Total Bilirubin 0.8 mg/dL mg/dL (0.1-1.4) Conjugated Bilirubin 0.3 mg/dL mg/dL (0.0-0.5) Unconjugated Bilirubin 0.5 mg/dL mg/dL (0.0-1.1) AST 21 IU/L IU/L (17-59) ALT 44 IU/L IU/L (21-72) Alkaline Phosphatase 81 IU/L IU/L (38-126) Total Protein 7.3 g/dL g/dL (6.3-8.2) Albumin 4.5 g/dL g/dL (3.5-5.0) Salicylates < 1.0 mg/dL L mg/dL (2.0-20.0) Acetaminophen < 10 mcg/mL L mcg/mL (10-30) Valproic Acid 37.4 mcg/mL L mcg/mL (50.0-150.0) Ethyl Alcohol < 10 mg/dL mg/dL (0-10) Medications Given: Discontinued Medications Sodium Chloride (Ns) 1,000 mls @ 0 mls/hr IV EDNOW ONE; Wide Open PRN Reason: Protocol Stop: 01/19/19 15:17 Last Admin: 01/19/19 15:18 Dose: 1,000 mls Sodium Chloride (Ns) 1,000 mls @ 0 mls/hr IV EDNOW ONE; Wide Open PRN Reason: Protocol Stop: 01/19/19 15:17 Last Admin: 01/19/19 15:18 Dose: 1,000 mls Departure - Departure Disposition: [facility] Inpatient Acute Clinical Impression: Drug overdose, intentional Condition: Critical
--- NOTE | 2019-01-19 15:09 | CPEKG ---
Test Reason : OPEN Blood Pressure : / mmHG Vent. Rate : 151 BPM Atrial Rate : 151 BPM P-R Int : 127 ms QRS Dur : 085 ms QT Int : 376 ms P-R-T Axes : 057 056 073 degrees QTc Int : 597 ms Sinus tachycardia Probable anteroseptal infarct, old Prolonged QT interval Confirmed by Dillon Francois ([id number]) on 01/19/2019 3:08:49 PM Referred By: Dillon Francois Confirmed By:Dillon Francois
[2019-01-19] MEDS ORDERED: NS 1,000 ML IV ONE ×2 (15:16)
[2019-01-19 15:22] LABS: PLATELET COUNT 204 10^3/uL (150-400)
[2019-01-19] MEDS ORDERED: oxyCODONE IR 5 MG TAB PO PRN (15:27)
[2019-01-19] MEDS ORDERED: ONDANSETRON DISINTEGRATING 4 MG TAB PO PRN (15:27)
[2019-01-19] MEDS ORDERED: PROMETHAZINE HCL 25 MG/ML INJ IVP PRN (15:27)
[2019-01-19] MEDS ORDERED: HYDROCODONE/APAP 5/325 TAB PO PRN (15:27)
[2019-01-19] MEDS ORDERED: HYDROmorphONE/DILAUDID 1 MG/ML INJ IVP PRN (15:27)
[2019-01-19] MEDS ORDERED: ONDANSETRON 4 MG/2 ML VIAL IVP PRN (15:27)
[2019-01-19] MEDS ORDERED: LORazepam 2 MG/ML INJ IVP PRN (15:27)
[2019-01-19] MEDS ORDERED: NS 1,000 ML IV SCH (15:30)
--- NOTE | 2019-01-19 16:29 | PDGENHP ---
History and Physical - Chief Complaint s/p intentional overdose - History of Present Illness Patient is a 38 yo M with PMH of polysubstance abuse including alcohol and methamphetamine as well as multiple prior ER visits and IP psychiatric stays for suicidal ideation in the setting of acute intoxication without clear underlying psychiatric diagnosis other than mood disorder NOS and substance abuse presenting by police following intentional depakote overdose. At the time of my evaluation patient obtunded and unresponsive and therefore this history entirely obtained by chart review and per ER doctor report. Apparently patient had presented to [facility] earlier today stating that he had overdosed on his medications as a suicide attempt, he had a bottle of depakote that was filled 2 days prior for 60 tablets, and had only 20 tablets left in the bottle with the estimate being that he had ingested somewhere between 19 and 20 grams of depakote. Poison control was contacted who recommended q 6 hour depakote levels until peak and supportive care--no recommendation for charcoal or other intervention currently. Patient protecting airway, responding to stimuli and intermittently agitated but not verbally responsive and not spontaneously opening eyes. He was placed on an M1 hold in the ER. History Information - Allergies/Home Medication List Allergies/Adverse Reactions: No Known Allergies Allergy (Verified 12/06/18 18:32) Home Medications: Divalproex ER [Depakote ER 500 MG (*)] 500 mg PO AD 01/19/19 [Last Taken Unknown ] OLANZapine [Olanzapine] 15 mg PO HS 01/19/19 [Last Taken Unknown] I have personally reviewed and updated: family history, medical history, social history, surgical history - Past Medical History psychiatric history (mood d/o nos--otherwise unknown currently) Additional medical history: alcohol abuse with hx of seizures and DTs. methamphetamine abuse - Surgical History Reports: no pertinent surgical hx - Family History Additional family history: none per chart review - Social History Smoking Status: Never smoked Alcohol Use: Heavy Drug Use: Other (methamphetamine) Additional social history: unknown current pattern of use given patients mental status Review of Systems Review of Systems: unobtainable due to patients mental status Physical Exam Physical Exam: Temp Pulse Resp BP Pulse Ox 36.8 C 135 H 17 165/89 H 97 01/19/19 16:13 01/19/19 16:13 01/19/19 16:13 01/19/19 16:13 01/19/19 16:13 Constitutional: unkempt Eyes: PERRL, anicteric sclera Ears, Nose, Mouth, Throat: poor dentition, dry mucous membranes Cardiovascular: no murmur, rub, or gallop, tachycardia, No edema Respiratory: no respiratory distress, no rales or rhonchi Gastrointestinal: normoactive bowel sounds, soft, non-tender abdomen Genitourinary: bergeron in urethra Skin: warm, normal color Musculoskeletal: No asymmetric calves Neurologic: CN II-XII Intact Psychiatric: encephalopathic Lab Data & Imaging Review 01/19/19 14:55 01/19/19 14:55 WBC 8.11 10^3/uL (3.80-9.50) 01/19/19 14:55 RBC 4.87 10^6/uL (4.40-6.38) 01/19/19 14:55 Hgb 15.7 g/dL (13.7-17.5) 01/19/19 14:55 Hct 45.1 % (40.0-51.0) 01/19/19 14:55 MCV 92.6 fL (81.5-99.8) 01/19/19 14:55 MCH 32.2 pg (27.9-34.1) 01/19/19 14:55 MCHC 34.8 g/dL (32.4-36.7) 01/19/19 14:55 RDW 13.2 % (11.5-15.2) 01/19/19 14:55 Plt Count 204 10^3/uL (150-400) 01/19/19 14:55 MPV 9.5 fL (8.7-11.7) 01/19/19 14:55 Neut % (Auto) 62.0 % (39.3-74.2) 01/19/19 14:55 Lymph % (Auto) 26.3 % (15.0-45.0) 01/19/19 14:55 [place] % (Auto) 11.0 % (4.5-13.0) 01/19/19 14:55 Eos % (Auto) 0.1 % (0.6-7.6) L 01/19/19 14:55 Baso % (Auto) 0.2 % (0.3-1.7) L 01/19/19 14:55 Nucleat RBC Rel Count 0.0 % (0.0-0.2) 01/19/19 14:55 Absolute Neuts (auto) 5.03 10^3/uL (1.70-6.50) 01/19/19 14:55 Absolute Lymphs (auto) 2.13 10^3/uL (1.00-3.00) 01/19/19 14:55 Absolute Monos (auto) 0.89 10^3/uL (0.30-0.80) H 01/19/19 14:55 Absolute Eos (auto) 0.01 10^3/uL (0.03-0.40) L 01/19/19 14:55 Absolute Basos (auto) 0.02 10^3/uL (0.02-0.10) 01/19/19 14:55 Absolute Nucleated RBC 0.00 10^3/uL (0-0.01) 01/19/19 14:55 Immature Gran % 0.4 % (0.0-1.1) 01/19/19 14:55 Immature Gran # 0.03 10^3/uL (0.00-0.10) 01/19/19 14:55 Sodium 137 mEq/L (135-145) 01/19/19 14:55 Potassium 3.6 mEq/L (3.5-5.2) 01/19/19 14:55 Chloride 105 mEq/L (97-110) 01/19/19 14:55 Carbon Dioxide 21 mEq/l (22-31) L 01/19/19 14:55 Anion Gap 11 mEq/L (6-14) 01/19/19 14:55 BUN 12 mg/dL (7-23) 01/19/19 14:55 Creatinine 0.8 mg/dL (0.7-1.3) 01/19/19 14:55 Estimated GFR > 60 01/19/19 14:55 Glucose 120 mg/dL (70-100) H 01/19/19 14:55 Calcium 9.5 mg/dL (8.5-10.4) 01/19/19 14:55 Total Bilirubin 0.8 mg/dL (0.1-1.4) 01/19/19 14:55 Conjugated Bilirubin 0.3 mg/dL (0.0-0.5) 01/19/19 14:55 Unconjugated Bilirubin 0.5 mg/dL (0.0-1.1) 01/19/19 14:55 AST 21 IU/L (17-59) 01/19/19 14:55 ALT 44 IU/L (21-72) 01/19/19 14:55 Alkaline Phosphatase 81 IU/L (38-126) 01/19/19 14:55 Ammonia < 9.0 uMOL/L (9.0-30.0) L 01/19/19 15:30 Total Protein 7.3 g/dL (6.3-8.2) 01/19/19 14:55 Albumin 4.5 g/dL (3.5-5.0) 01/19/19 14:55 Salicylates < 1.0 mg/dL (2.0-20.0) L 01/19/19 14:55 Urine Opiates Screen NEGATIVE (NEGATIVE) 01/19/19 15:24 Acetaminophen < 10 mcg/mL (10-30) L 01/19/19 14:55 Urine Barbiturates NEGATIVE (NEGATIVE) 01/19/19 15:24 Valproic Acid 37.4 mcg/mL (50.0-150.0) L 01/19/19 14:55 Ur Phencyclidine Scrn NEGATIVE (NEGATIVE) 01/19/19 15:24 Ur Amphetamine Screen NON-NEGATIVE (NEGATIVE) H 01/19/19 15:24 U Benzodiazepines Scrn NEGATIVE (NEGATIVE) 01/19/19 15:24 Urine Cocaine Screen NEGATIVE (NEGATIVE) 01/19/19 15:24 U Marijuana (THC) Screen NEGATIVE (NEGATIVE) 01/19/19 15:24 Ethyl Alcohol < 10 mg/dL (0-10) 01/19/19 14:55 Visualized and Interpreted Chest x-ray results: Yes Chest X-Ray results: no infiltrate Visualized and Interpreted EKG results: Yes EKG additional interpertation: sinus tachycardia Assessment & Plan Assessment: 38 yo M with hx of PSA as well as mood d/o NOS and prior suicidal ideation admitted s/p suicide attempt by intentional overdose # intentional depakote overdose: patient presenting obtunded but responsive to painful stimuli and moving all 4 extremities, protecting his airway, with gag reflex. LFTS and ammonia level wnl currently. Initial VPA level low, apap/ salicylate level negative. Plan for supportive care in ICU, will trend VPA levels and will trial naloxone to eval for any improvement in mentation given reports of efficacy and low risk of harm in this patient without hx of opiate addiction. VPA metabolism is noted to be somewhat unpredictable and involve generation of active metabolites. # toxic encephalopathy: due to intentional drug overdose as above, patient only minimally responsive currently as above, monitoring in ICU, will request serial neuro exam. There is potential for cerebral edema post VPA overdose reportedly due to abnormal metabolism and generally noted 12 hours to 4 days post ingestion # suicide attempt: placed on M1 hold, when medically clear will need TLC evaluation # alcohol use disorder, severe: with hx of severe withdrawal with seizures and DTs in the past, will need to monitor for onset of etoh w/d complicating above, for now PRN ativan only given obtundation but if e/o withdrawal will need to begin scheduled ativan. BAL < 10 on arrival # methamphetamine abuse: tox screen positive for amphetamines on arrival # hyperglycemia: likely stress response # IP status, high risk requiring ICU level care, in addition to usual time spent in H&P, an additional > 35 min critical care time spent in evaluation of labs/imaging and coordination of care with other doctors/specialists Patient new to my care. Old records reviewed and summarized as above.
[2019-01-19] MEDS ORDERED: NALOXONE HCL 0.4 MG/ML INJ IVP PRN (17:16)
[2019-01-19] MEDS: LORazepam 2 MG/ML INJ IVP PRN ×2 (17:23→18:02)
[2019-01-19 17:28] LABS: CREATINE KINASE 122 IU/L (0-224)
--- NOTE | 2019-01-19 17:28 | PDCONSULT ---
Level Vial Inspector And Tester Note: ASSESSMENT 38-year-old male with bipolar mood disorder and polysubstance abuse admitted with intentional Depakote overdose with suicide attempt complicated by methamphetamine intoxication # Depakote overdose. # methamphetamine intoxication # encephalopathy # sinus tachycardia # suicide attempt PLAN # q.6 hours Depakote levels until down trending # daily ammonia and give l-carnitine is needed if rising # as needed Ativan for methamphetamine intoxication # check CK level to rule out rhabdo given methamphetamine intoxication # D5 LR with 20 mEq KCL at 25 mL/hr. If CK significantly elevated will increase rate # a.m. CMP # currently protecting airway, will avoid intubation of possible # Feeding - NPO # Analgesia none # Sedation none # Thromboprophylaxis - Lovenox # Head of bed elevated # Ulcer prophylaxis - in a # Glucose SSI # Skin no skin breakdown # Delirium - delirium precautions CC encephalopathy HPI Lamin is a 38-year-old male who was brought in by police after intentional Depakote overdose. He has a long history of polysubstance abuse including alcohol methamphetamines. He has multiple ER an inpatient psychiatric visit takes shins. In the ED was found to be somnolent and agitated. HPI as obtained through chart review and providers. He was seen at [facility] in days stating intentionally overdosed on medications. He had a bottle of Depakote this filled 2 days prior with 60 tablets orally 20 tablets left at the time. Per report he ingested approximately 20 g a difficult. Poison Control was contacted who recommended q.6 hours Depakote checks and admission l-carnitine of ammonia levels rise but no other intervention. MED HX Bipolar mood disorder polysubstance abuse Medication Medication reconciliation is performed. Depakote, olanzapine Past medical history Bipolar mood disorder alcohol abuse, drug abuse, overdose, intoxications Social history Polysubstance abuse Family history Unable to obtain secondary to patient's mental status Review of systems Unable to be obtained secondary to patient's mental status Physical exam Afebrile, sinus tachycardia 130s, blood pressure 134/78, respiratory rate 10-14 GEN: Obtunded, response pain NEURO: Responsive pain, nonfocal, withdraws to painful stimuli HEENT: PERRL, EOMI, MMM, OP clear NECK: supple, trachea midline CHEST normal shape, no pes excavatum CVS: rrr no m/r/g, no JVD appreciated PULM: CTAB, no wheezes/rales/rhonchi ABD: soft, NT, ND, NABS EXT: no swelling, no cyanosis, full ROM SKIN: warm, dry, intact, no rash PSYCH obtunded LABS reviewed Normal serum creatinine, CPK pending, ammonia less than 9 I reviewed interpreted radiographic images well as formal radiology reads 01/19/2019 CXR clear lung mir normal heart border hypoexpanded lungs osseous structures intact
[2019-01-19] MEDS: POTASSIUM Cl (KCl) 20 MEQ in D5W LR 1,000 ML IV SCH (17:40)
[2019-01-20 05:19] LABS: PLATELET COUNT 195 10^3/uL (150-400)
[2019-01-20] MEDS ORDERED: ROCURONIUM 100 MG/10 ML VIAL ONE (08:15)
[2019-01-20] MEDS ORDERED: PROPOFOL/EMULSION 1,000 MG/100 ML BOTTLE IV ONE ×2 (08:28→12:05)
[2019-01-20] MEDS ORDERED: PHENYLEPHRINE HCL 100 MCG/ML SYR ONE (09:03)
[2019-01-20] MEDS: PROPOFOL/EMULSION 100 ML IV SCH ×4 (09:20→20:47)
[2019-01-20] MEDS ORDERED: ROCURONIUM 100 MG/10 ML VIAL IVP ONE (10:00)
[2019-01-20] MEDS ORDERED: MIDAZOLAM 2 MG/2 ML VIAL IVP ONE (10:00)
[2019-01-20] MEDS ORDERED: fentaNYL 100 MCG/2 ML INJ IVP ONE (10:00)
[2019-01-20] MEDS ORDERED: fentaNYL 100 MCG/2 ML INJ ONE (10:48)
--- NOTE | 2019-01-20 11:26 | HOSPPROG ---
Hospitalist Progress Note Assessment/Plan: 38 yo M w polysubstance abuse here w intentional depakote OD and now resp distress'' aspiration: intubated for airway protection start unasyn continue intubation tachycardia: sinus (ekg interp by me) clair methamphetamine not hypertensive to suggest etoh withdrawal, although does have a h/o that continue ivf support SI; on m1 hold proph: add lmwh dispo: ICU 40 min crit care Subjective: intubated this AM for resp distress, suspected aspiration. cxr w b/ l lower airspace disease (interp by me). case d/w dr wills Objective: Vital Signs Temp Pulse Resp BP Pulse Ox 37.3 C 150 H 21 H 122/67 H 92 01/20/19 08:00 01/20/19 10:00 01/20/19 10:00 01/20/19 10:00 01/20/19 10:00 Laboratory Results 01/20/19 04:30 01/20/19 04:30 01/19/19 01/20/19 01/21/19 05:59 05:59 05:59 Intake Total 3000 Output Total 4125 Balance -1125 - Physical Exam Constitutional: other (intubated, sedated) Eyes: anicteric sclera Ears, Nose, Mouth, Throat: moist mucous membranes, hearing normal Cardiovascular: no murmur, rub, or gallop, tachycardia Respiratory: no respiratory distress, bronchial breath sounds, No no rales or rhonchi Gastrointestinal: normoactive bowel sounds, soft, non-tender abdomen Genitourinary: no bladder fullness, bergeron in urethra Skin: warm, normal color Musculoskeletal: No full muscle strength Neurologic: No AAOx3 Psychiatric: No interacting appropriately Lymph, Heme, Immunologic: no cervical LAD ICD10 Worksheet Patient Problems: Problems Problem Status Onset Drug overdose, intentional Acute Chest pain Acute
--- NOTE | 2019-01-20 11:51 | SUROPNOTE ---
[facility] Operative Report - Surgery Emergency Endotracheal Intubation Date and Time 01/20/19 0900 Operators S Pawel Parker MD Indication Respiratory failure Consent Emergency procedure in a critically ill decompensating patient Preoxygenation NRB, BVM Medications Fentanyl 100 mcg Versed 2 mg Rocuronium 150 mg Equipment Mac 3 7.5 ETT 15 F bougie Maccormick mayfield grade view intubation 1 Number of Attempts 1 Post Procedure Placement was confirmed with capnography, breath sounds were ausculated bilaterally. ETT pacheco, 24 cm at teeth, CXR ordered Complications None
[2019-01-20] MEDS: POTASSIUM Cl (KCl) 20 MEQ in D5W LR 1,000 ML IV SCH ×2 (12:11→20:47)
[2019-01-20] MEDS: AMPICILLIN/SULBACTAM 3 GM in NS 100 ML IV SCH ×3 (12:17→23:28)
--- NOTE | 2019-01-20 12:57 | PDMN ---
Medical Necessity Medical necessity: Pt meets IP criteria per MD & MCG M-153; est los >2 mn for eval/tx of intentional Depakote overdose; pt presents obtunded; placed on M1 hold due to suicide attempt; admit to ICU for close monitoring/safety, follow- up labs & TLC eval; hx polysubstance abuse, suicidal ideation & mood disorder; per H&P & order 01/19/19
--- NOTE | 2019-01-20 14:40 | ASMTCASEMG ---
Living Arrangements What is your living Answers: Alone arrangement? Who do you live with? Type Of Residence What kind of residence do Answers: Homeless you live in? Discharge Plan Comments Coordination Status Comments Notes: Patient is a 38yo single, homeless male who overdosed on Depakote intentionally. Patient was placed on an M1 hold. He has a past medical hx of polysubstance abuse including alcohol and methamphetamine and is an active client of [facility]. He presented to [facility] stating he had taken an overdose of his medications and was subsequently brought to [facility] ER. Patient has been encephalopathic and only minimally responsive. Patient aspirated last night and has been intubated for airway protection. He has tachycardia and some respiratory distress. Patient will need a TLC eval when medically clear. D/C plan TBD by TLC. CM will follow. Date Signed: 01/20/2019 02:39 PM Electronically Signed By:Marian Fletcher LCSW
--- NOTE | 2019-01-20 15:33 | ASMTCMCOM ---
CM Note CM Note Notes: Spoke with Dr. Parker regarding patient's critical condition. Patient has a father, Beto Keane in [facility] at [phone]. Consulted with Dr. Watt as well who was in agreement to contact patient's father. The number we have for the father has been disconnected. No other family or friends have been listed for the patient. CM will follow. Date Signed: 01/20/2019 03:32 PM Electronically Signed By:Marian Fletcher LCSW
--- NOTE | 2019-01-20 16:09 | PDINTPN ---
Material Manager Progress Note Assessment/Plan: ASSESSMENT 38-year-old male with bipolar mood disorder and polysubstance abuse admitted with intentional Depakote overdose with suicide attempt complicated by methamphetamine intoxication # Depakote overdose. # acute hypoxemic respiratory failure requiring intubation. Due to aspiration event leading to aspiration pneumonia # aspiration pneumonia # methamphetamine intoxication # toxic encephalopathy. GCS 3 # sinus tachycardia # suicide attempt PLAN # lung protective ventilation goal sats 92-94% # Unasyn for aspiration pneumonia # no role for bronchoscopy at this juncture # q.6 hours Depakote levels until down trending # daily ammonia and give l-carnitine Depakote is >450 and high # as needed Ativan for methamphetamine intoxication # check CK level to rule out rhabdo given methamphetamine intoxication # D5 LR with 20 mEq KCL at 25 mL/hr. If CK significantly elevated will increase rate # a.m. CMP # start trickle feeds # Analgesia none # Sedation none # Thromboprophylaxis - Lovenox # Head of bed elevated # Ulcer prophylaxis - H2 suki # Glucose SSI # Skin no skin breakdown # Delirium - delirium precautions Patient is critically ill due to multiorgan dysfunction is high risk for further decompensation and . Total critical care time spent with patient 82 min which was spent evaluating the patient at bedside, reviewing patient's chart, phone conversations with the poison Control Center in toxicology fellow as well as coordinating care with pharmacy and hospital Medicine Subjective: Patient decompensated overnight. I was called by nursing at 5:00 a.m. This morning stating that patient appeared to have vomited and aspirated with worsening encephalopathy and inability to protect airways. When I arrived this morning evaluate patient found to be tachypneic and hypoxemic. After quick discussions staff I proceed with emergent endotracheal intubation. I also discussed with poison Center whether we should administer l-carnitine given worsening encephalopathy and elevated pneumonia. Objective: Vital Signs Temp Pulse Resp BP Pulse Ox 38.2 C 110 H 28 H 83/55 L 94 01/20/19 12:00 01/20/19 14:00 01/20/19 14:00 01/20/19 14:00 01/20/19 14:00 Laboratory Results 01/20/19 04:30 01/20/19 04:30 01/19/19 01/20/19 01/21/19 05:59 05:59 05:59 Intake Total 3000 Output Total 4125 350 Balance -1125 -350 Physical Exam - Physical Exam General Appearance: obtunded, severe distress, unresponsive EENT: other, No normal ENT inspection, No pharynx normal Neck: supple, normal inspection Respiratory: other (Course breath sounds tachypneic use of accessory muscles) Cardiac/Chest: normal peripheral pulses, regular rate, rhythm Abdomen: normal bowel sounds, non-tender Skin: normal color, warm/dry, No cyanosis Extremities: No pedal edema, No swelling Neuro/Psych: other (Obtunded, nonresponsive to pain. No rigidity) ICD10 Worksheet Patient Problems: Problems Problem Status Onset Drug overdose, intentional Acute Chest pain Acute
[2019-01-20] MEDS: ACETAMINOPHEN 650 MG SUPP PR PRN (16:27)
[2019-01-21] MEDS: PROPOFOL/EMULSION 100 ML IV SCH ×3 (02:21→16:16)
[2019-01-21] MEDS: POTASSIUM Cl (KCl) 20 MEQ in D5W LR 1,000 ML IV SCH ×2 (05:03→15:34)
[2019-01-21] MEDS: AMPICILLIN/SULBACTAM 3 GM in NS 100 ML IV SCH ×3 (06:11→18:23)
[2019-01-21] MEDS: ENOXAPARIN 40 MG/0.4 ML SYR SC SCH (07:45)
--- NOTE | 2019-01-21 09:15 | PDINTPN ---
Boiler House Inspector Progress Note Assessment/Plan: ASSESSMENT 38-year-old male with bipolar mood disorder and polysubstance abuse admitted with intentional Depakote overdose with suicide attempt complicated by methamphetamine intoxication # Depakote overdose. # acute hypoxemic respiratory failure requiring intubation. Due to aspiration event leading to aspiration pneumonia # aspiration pneumonia # methamphetamine intoxication # toxic encephalopathy. GCS 3 # sinus tachycardia # suicide attempt PLAN # lung protective ventilation goal sats 92-94% # Unasyn for aspiration pneumonia to complete 5 day course # no role for bronchoscopy at this juncture # check depakote levels daily until down trending # no role for l-carnitine unless Depakote is >450 and am[place] is high # as needed Ativan for methamphetamine intoxication # D5 LR with 20 mEq KCL at 100 mL/hr. # a.m. CMP # Feeding- tube feeds started 01/20/19 # Analgesia none # Sedation propofol # Thromboprophylaxis - Lovenox # Head of bed elevated # Ulcer prophylaxis - H2 suki # Glucose SSI # Skin no skin breakdown # Delirium - delirium precautions Reviewed interpreted radiographic images well as formal radiology reads 01/21/2019 CXR interval improvement expansion. Streaky left lower lobe opacities consistent with aspiration Patient is critically ill due to multiorgan dysfunction is high risk for further decompensation and . Total critical care time spent with patient 45 min which was spent adjusting ventilator, multidisciplinary rounds, titrating medications and speaking with specialist 01/21/19 09:59 Subjective: Still encephalopathic. Valproic acid continues to climb a albeit slowly, leukocytosis but no recurrent fevers. Oxygenation requirements improving but still with hypoxemic respiratory failure requiring ventilatory support. Objective: Vital Signs Temp Pulse Resp BP Pulse Ox 38.2 C 108 H 26 H 108/90 H 92 01/21/19 07:28 01/21/19 08:18 01/21/19 08:18 01/21/19 07:28 01/21/19 08:18 Laboratory Results 01/20/19 04:30 01/20/19 04:30 01/20/19 01/21/19 01/22/19 05:59 05:59 05:59 Intake Total 3000 3977 Output Total 4125 1275 Balance -1125 2702 Physical Exam - Physical Exam General Appearance: obtunded, unresponsive EENT: ET tube, No rhinorrhea Neck: full range of motion, supple Respiratory: lungs clear, other (Mechanical breath sounds) Cardiac/Chest: normal peripheral pulses, tachycardia, No edema Abdomen: normal bowel sounds, non-tender Back: Normal inspection Skin: normal color, warm/dry, No cyanosis Extremities: normal range of motion Neuro/Psych: other (Obtunded, sedated, no focal deficits no myoclonus) ICD10 Worksheet Patient Problems: Problems Problem Status Onset Drug overdose, intentional Acute Chest pain Acute
--- NOTE | 2019-01-21 09:29 | HOSPPROG ---
Hospitalist Progress Note Assessment/Plan: 38 yo M w polysubstance abuse here w intentional depakote OD and now resp distress'' aspiration: intubated for airway protection continue unasyn cxr improved lighten sedation and SB this AM fever: continues to be febrile while cxr improved may still be due to aspiration check blood cx continue abx belly soft check skin on back when rolled VPA toxicity: levels continue to rise supportive care Keith Ríos has spoken to toxicology consult tachycardia: sinus (ekg interp by me) clair methamphetamine not hypertensive to suggest etoh withdrawal, although does have a h/o that continue ivf support SI; on m1 hold proph: add lmwh dispo: ICU 40 min crit care Subjective: cxr w improved bibasilar airspace disease (interp by me). case d/w dr wills. remains febrile Objective: Vital Signs Temp Pulse Resp BP Pulse Ox 38.2 C 108 H 26 H 108/90 H 92 01/21/19 07:28 01/21/19 08:18 01/21/19 08:18 01/21/19 07:28 01/21/19 08:18 Laboratory Results 01/20/19 04:30 01/20/19 04:30 01/20/19 01/21/19 01/22/19 05:59 05:59 05:59 Intake Total 3000 3977 Output Total 4125 1275 Balance -1125 2702 - Physical Exam Constitutional: no apparent distress, other (intubated, sedated) Eyes: PERRL, anicteric sclera Ears, Nose, Mouth, Throat: moist mucous membranes, hearing normal Cardiovascular: regular rate and rhythym, no murmur, rub, or gallop Respiratory: no respiratory distress, other (rhoncorous anterolat) Gastrointestinal: normoactive bowel sounds, soft, non-tender abdomen Genitourinary: no bladder fullness, bergeron in urethra Skin: warm, normal color, other (no erthema) Musculoskeletal: no muscle tenderness Neurologic: No AAOx3 Psychiatric: No interacting appropriately ICD10 Worksheet Patient Problems: Problems Problem Status Onset Drug overdose, intentional Acute Chest pain Acute
[2019-01-21 11:09] LABS: PLATELET COUNT 165 10^3/uL (150-400)
[2019-01-21] MEDS: FAMOTIDINE 20 MG TAB PO SCH ×2 (11:49→22:34)
[2019-01-21] MEDS: ACETAMINOPHEN 325 MG TAB PO PRN (16:22)
[2019-01-22] MEDS: AMPICILLIN/SULBACTAM 3 GM in NS 100 ML IV SCH ×4 (00:09→17:13)
[2019-01-22 05:39] LABS: PLATELET COUNT 149 10^3/uL (150-400)
[2019-01-22] MEDS: ACETAMINOPHEN 325 MG TAB PO PRN (08:57)
[2019-01-22] MEDS: ENOXAPARIN 40 MG/0.4 ML SYR SC SCH (08:57)
[2019-01-22] MEDS: FAMOTIDINE 20 MG TAB PO SCH (08:57)
[2019-01-22] MEDS ORDERED: LIDOCAINE 2% JELLY 6 ML TOPICAL SYR TP ONE (09:31)
[2019-01-22] MEDS ORDERED: LIDOCAINE 1% 300 MG/30 ML SDV MISC ONE (09:31)
[2019-01-22] MEDS: LORazepam 2 MG/ML INJ IVP PRN ×3 (10:00→16:19)
--- NOTE | 2019-01-22 10:39 | ASMTCMCOM ---
CM Note CM Note Notes: Patient is intubated and sedated. I attempted to call [facility] for information on patient's involvement with them. They do not appear to work on the weekends. I also learned that patient is a client of [facility]. I was also not able to contact those case preparer and liner today, either. Per our records, patient had two ED visits in November with polysubstance abuse/SI, and it appears that he was hospitalized at [facility], as well. Case Management will continue to follow. Date Signed: 01/22/2019 10:39 AM Electronically Signed By:Erica Lott RN
--- NOTE | 2019-01-22 13:09 | SUROPNOTE ---
[facility] Operative Report - Surgery PROCEDURE NOTE: Flexible bronchoscopy with bronchoalveolar lavage and therapeutic aspiration Procedure Rubber Production Machine Operator S Pawel Parker MD Procedure: Flexible bronchoscopy with bronchoalveolar lavage and therapeutic aspiration Preoperative diagnosis: Pneumonia, respiratory failure Postoperative diagnosis: Pneumonia, respiratory failure Consent: Medical necessity. Unable to be obtained from patient and no family members or interested parties available Anesthesiologist NA Sedation Type: deep sedation Sedation Medications: propofol, Ativan Medications: Topical 1% lidocaine: 10 cc via endotracheal tube Procedure Summary: Time out was performed. The bronchoscope was then introduced via the endotracheal tube into the airway. Thick stapleton purulent secretions were noted throughout the airways most notably in the right lower lobe. All secretions were washed and therapeutically aspirated. Next a formal bronchoalveolar lavage was performed in the right middle lobe with instillation of 100 cc of normal saline and return of 35 cc of turbid appearing fluid. Fluid was sent for analysis. Endotracheal tube was noted to be 1.5 cm above the james. RT was instructed to back the ET tube 1.5 cm No complications were noted. EBL none Complications: None Impression: Pneumonia Items to Follow-up: BAL fluid sent cell count, diff, Gram stain and culture S Pawel Parker MD Pulmonary and Critical Care Medicine [phone]
--- NOTE | 2019-01-22 13:13 | PDINTPN ---
Opinion Polls Survey Worker Progress Note Assessment/Plan: ASSESSMENT 38-year-old male with bipolar mood disorder and polysubstance abuse admitted with intentional Depakote overdose with suicide attempt complicated by methamphetamine intoxication # Depakote overdose. Level peaked at 223 # acute hypoxemic respiratory failure requiring intubation. Due to aspiration event leading to aspiration pneumonia # aspiration pneumonia # methamphetamine intoxication # toxic encephalopathy. GCS 3 # sinus tachycardia # suicide attempt # bipolar mood disorder PLAN # lung protective ventilation goal sats 92-94% # Unasyn for aspiration pneumonia to complete 5 to 7 day course # will perform bronchoscopy with BAL and therapeutic aspiration given the increasing secretions despite antibiotics # stop trending Depakote as has already peaked and is now down trending # as needed Ativan for methamphetamine intoxication # D5 LR with 20 mEq KCL at 75 mL/hr, wean off as tube feeds are increased # daily BMP, CBC # Feeding- tube feeds started 01/20/19 # Analgesia none # Sedation propofol # Thromboprophylaxis - Lovenox # Head of bed elevated # Ulcer prophylaxis - H2 suki # Glucose SSI # Skin no skin breakdown # Delirium - delirium precautions Reviewed interpreted radiographic images well as formal radiology reads 01/21/2019 CXR interval improvement expansion. Streaky left lower lobe opacities consistent with aspiration Patient is critically ill due to multiorgan dysfunction is high risk for further decompensation and . Total critical care time spent with patient 55 min which was spent adjusting ventilator, multidisciplinary rounds, discussions with nursing and multi disciplinary rounds Subjective: Patient is still markedly encephalopathic and required restraints when sedation was lightened. Did not follow commands. Nursing staff also noted thick stapleton secretions requiring increased suctioning. No increase in ventilatory requirements Objective: Vital Signs Temp Pulse Resp BP Pulse Ox 38.4 C H 90 24 H 110/67 94 01/22/19 08:00 01/22/19 10:00 01/22/19 10:00 01/22/19 10:00 01/22/19 10:00 Laboratory Results 01/22/19 05:15 01/22/19 05:15 01/21/19 01/22/19 01/23/19 05:59 05:59 05:59 Intake Total 3977 3639 Output Total 1275 2950 Balance 2702 689 Physical Exam - Physical Exam General Appearance: obtunded EENT: ET tube, other (Thick secretions coming from ET tube), No tonsillar exudate Neck: normal inspection, No thyromegaly Respiratory: other (Course breath sounds non tachypneic male good gas exchange on ventilator) Cardiac/Chest: normal peripheral pulses, regular rate, rhythm, No edema Abdomen: soft, No pulsatile mass Skin: normal color, warm/dry Extremities: non-tender, No pedal edema, No swelling Neuro/Psych: other (Sedated, nonspecifically response to pain. No focal deficits) ICD10 Worksheet Patient Problems: Problems Problem Status Onset Drug overdose, intentional Acute Chest pain Acute
--- NOTE | 2019-01-22 14:12 | HOSPPROG ---
Hospitalist Progress Note Assessment/Plan: 38 yo M w polysubstance abuse here w intentional depakote OD and now resp distress'' aspiration: intubated for airway protection continue unasyn cxr improved lighten sedation and SB this AM fever: continues to be febrile while cxr improved may still be due to aspiration check blood cx continue abx belly soft check skin on back when rolled VPA toxicity: levels have peaked supportive care Dr. Parker has spoken to toxicology consult encephalopathy: toxic metabolic precludes extubation today tachycardia: sinus (ekg interp by me) clair methamphetamine not hypertensive to suggest etoh withdrawal, although does have a h/o that continue ivf support SI; on m1 hold proph: add lmwh dispo: ICU 40 min crit care Subjective: case d/w dr parker. bronch w stapleton secretions. very agitated when sedation lightened Objective: Vital Signs Temp Pulse Resp BP Pulse Ox 37.8 C 95 23 H 122/72 H 98 01/22/19 12:00 01/22/19 13:00 01/22/19 13:00 01/22/19 13:00 01/22/19 13:00 Laboratory Results 01/22/19 05:15 01/22/19 05:15 01/21/19 01/22/19 01/23/19 05:59 05:59 05:59 Intake Total 3977 3639 Output Total 1275 2950 Balance 2702 689 - Physical Exam Constitutional: no apparent distress, other (intubated, sedated) Eyes: PERRL, anicteric sclera Ears, Nose, Mouth, Throat: moist mucous membranes, hearing normal Cardiovascular: regular rate and rhythym, no murmur, rub, or gallop Respiratory: bronchial breath sounds, aegophony, No no rales or rhonchi, No clear to auscultation Gastrointestinal: normoactive bowel sounds, soft, non-tender abdomen Genitourinary: bergeron in urethra Skin: warm, normal color Musculoskeletal: No full muscle strength Neurologic: No AAOx3 Psychiatric: No interacting appropriately Lymph, Heme, Immunologic: no cervical LAD ICD10 Worksheet Patient Problems: Problems Problem Status Onset Drug overdose, intentional Acute Chest pain Acute
[2019-01-22] MEDS: POTASSIUM Cl (KCl) 20 MEQ in D5W LR 1,000 ML IV SCH (14:32)
[2019-01-22] MEDS ORDERED: HYDROCODONE/APAP 5/325 TAB TUBE PRN (15:30)
[2019-01-22] MEDS ORDERED: ONDANSETRON DISINTEGRATING 4 MG TAB TUBE PRN (15:30)
[2019-01-22] MEDS ORDERED: oxyCODONE IR 5 MG TAB TUBE PRN (15:30)
[2019-01-22] MEDS: ACETAMINOPHEN 325 MG TAB TUBE PRN (16:22)
[2019-01-22] MEDS: PROPOFOL/EMULSION 100 ML IV SCH (17:15)
[2019-01-23] MEDS: FAMOTIDINE 20 MG TAB TUBE SCH ×2 (00:44→08:50)
[2019-01-23] MEDS: AMPICILLIN/SULBACTAM 3 GM in NS 100 ML IV SCH ×5 (00:44→23:28)
[2019-01-23] MEDS: LORazepam 2 MG/ML INJ IVP PRN ×2 (06:16→08:46)
[2019-01-23] MEDS: POTASSIUM Cl (KCl) 20 MEQ in D5W LR 1,000 ML IV SCH ×2 (06:48→20:03)
[2019-01-23] MEDS: PROPOFOL/EMULSION 100 ML IV SCH (08:24)
[2019-01-23] MEDS: ENOXAPARIN 40 MG/0.4 ML SYR SC SCH (08:49)
[2019-01-23] MEDS: ACETAMINOPHEN 325 MG TAB TUBE PRN (08:50)
--- NOTE | 2019-01-23 09:29 | HOSPPROG ---
Hospitalist Progress Note Assessment/Plan: 38 yo M w polysubstance abuse here w intentional depakote OD and now resp distress'' aspiration: intubated for airway protection continue unasyn cxr improved lighten sedation and SB this AM fever: continues to be febrile while cxr improved may still be due to aspiration check blood cx continue abx belly soft check skin on back when rolled still w a fair amount of secretions was bronched yesterday VPA toxicity: levels have peaked repeat depakote level today encephalopathy: toxic metabolic precludes extubation today tachycardia: sinus (ekg interp by me) clair methamphetamine not hypertensive to suggest etoh withdrawal, although does have a h/o that continue ivf support SI; on m1 hold proph: add lmwh dispo: ICU Subjective: case d/w dr love. cxr w RLL [place] (interp by me) Objective: Vital Signs Temp Pulse Resp BP Pulse Ox 38.2 C 82 23 H 123/73 H 96 01/23/19 08:27 01/23/19 08:27 01/23/19 08:27 01/23/19 08:27 01/23/19 08:27 Microbiology 01/22/19 11:30 Gram Stain - Final Bronchial Alveolar Lavage - Lung Laboratory Results 01/22/19 05:15 01/23/19 05:11 01/22/19 01/23/19 01/24/19 05:59 05:59 05:59 Intake Total 3639 2671 Output Total 2950 1900 Balance 689 771 - Physical Exam Constitutional: other (intubated, sedated) Eyes: PERRL Ears, Nose, Mouth, Throat: moist mucous membranes Cardiovascular: regular rate and rhythym, no murmur, rub, or gallop Respiratory: other (rhoncorous breath sounds anterolat) Gastrointestinal: normoactive bowel sounds, soft, non-tender abdomen Genitourinary: No bergeron in urethra Skin: warm, normal color Musculoskeletal: full muscle strength Neurologic: AAOx3 ICD10 Worksheet Patient Problems: Problems Problem Status Onset Drug overdose, intentional Acute Chest pain Acute
[2019-01-23] MEDS ORDERED: OLANZapine DISINTEGR 10 MG TAB PO ONE (09:43)
[2019-01-23 10:54] LABS: PLATELET COUNT 142 10^3/uL (150-400)
--- NOTE | 2019-01-23 13:54 | ASMTCMCOM ---
CM Note CM Note Notes: CM spoke with [facility]. No family/ next of kin listed. PCP is Natalya Titus, last seen there on 09/22/18. Pt is linked with Jaime Russell at [facility]; no next of kin listed. Message left for Jaime Russell requesting call back. Denys from [facility] returned the call and said he has no emergency contact listed. CM spoke with Precious from [employer] who is available to assign MDproxy if needed. CM spoke with RN, pt has been extubated and on M1 hold. CM to reassess need for MDproxy as pt continues to progress and will consult [facility] as needed. CM to continue to follow. Plan: TBD Date Signed: 01/23/2019 01:53 PM Electronically Signed By:ETTA Gupta
[2019-01-23] MEDS: ACETAMINOPHEN 650 MG SUPP PR PRN (17:02)
--- NOTE | 2019-01-23 18:09 | PDINTPN ---
Physically Impaired Teacher Progress Note Assessment/Plan: 38 M with bipolar disorder and polysubstance abuse admitted 01/19 with intentional depakote OD and methamphetamine abuse requiring intubation, complicated by aspiration pneumonia. * acute respiratory failure with hypoxia and ventilator management- as above with minimal RLL infiltrates on todays CXR. Plan to give Zyprexa followed by rapid extubation as tolerated. * aspiration- Remains on Unasyn, which will need clarification for duration * Bipolar d/o- will likely require resumption of meds- may need psych help given OD. M1 resumed with extubation for suicide attempt. * Altered mental status- as above. * methamphetamine abuse- should be washing out by now- this can be associated with cardiovscular collapse so efforts to minimize stimulation should be followed. * * critical care time 40 minutes Subjective: RN reported difficulty with sedation and agitation but on CPAP overnight Objective: Vital Signs Temp Pulse Resp BP Pulse Ox 38.7 C H 88 24 H 123/66 H 98 01/23/19 16:00 01/23/19 16:00 01/23/19 16:00 01/23/19 16:00 01/23/19 16:00 Microbiology 01/22/19 11:30 Gram Stain - Final Bronchial Alveolar Lavage - Lung Laboratory Results 01/23/19 09:55 01/23/19 05:11 01/22/19 01/23/19 01/24/19 05:59 05:59 05:59 Intake Total 3639 2671 1312 Output Total 2950 1900 1500 Balance 689 771 -188 Physical Exam - Physical Exam General Appearance: obtunded EENT: PERRL/EOMI, ET tube Neck: supple Respiratory: lungs clear, normal breath sounds, decreased breath sounds, No respiratory distress, No accessory muscle use Cardiac/Chest: regular rate, rhythm, No edema Abdomen: non-tender, soft, No distended Skin: normal color, warm/dry, No cyanosis Lymphatic: no adenopathy Extremities: No pedal edema Neuro/Psych: cognition abnormalities, No abnormal die cast patternmaker II-XII ICD10 Worksheet Patient Problems: Problems Problem Status Onset Drug overdose, intentional Acute Chest pain Acute
[2019-01-23] MEDS: FAMOTIDINE 20 MG/NACL 50 ML IV SCH (20:52)
[2019-01-24] MEDS: LORazepam 2 MG/ML INJ IVP PRN (01:56)
[2019-01-24] MEDS ORDERED: HALOPERIDOL LACT 5 MG/ML INJ IVP PRN (04:31)
[2019-01-24] MEDS: AMPICILLIN/SULBACTAM 3 GM in NS 100 ML IV SCH ×4 (05:44→23:37)
[2019-01-24 05:55] LABS: PLATELET COUNT 152 10^3/uL (150-400)
[2019-01-24] MEDS: FAMOTIDINE 20 MG/NACL 50 ML IV SCH ×2 (09:17→20:07)
[2019-01-24] MEDS: ENOXAPARIN 40 MG/0.4 ML SYR SC SCH (09:17)
[2019-01-24] MEDS ORDERED: DIVALPROEX ER 500 MG TAB PO SCH ×2 (11:15→21:00)
--- NOTE | 2019-01-24 12:15 | WOCRNPDOC ---
[facility] Advanced Assessment Note - Skin Integrity Problem, Advanced Assess Left Pedal Foot Dressing Type: Allevyn Life Dressing Description: Clean/Dry, Intact Closure Description: Approximated Exudate Amount: None Integumentary Issue Intervention: Dressing Removed Diana Wound Tissue: Intact, Dry, Calloused Wound Bed Color: Brown Wound Bed Constitution: Draining Sangenous Blister Wound Edges: Attached, Well Defined Site Measurement - Head-to-Toe Length X Width X Depth (cm): 6x1.7xintact Skin Integrity Problem Comment: Allevyn Life removed from foot to reveal drained sanguinous blister. No drainage with palpation and no fluctuance. CM reports that patient is homeless and as such, likely spends a lot of time on his feet walking. Recommend keeping the roof on the blister at this point and painting the area BID with betadyne. Wound care will not continue to round.
[2019-01-24] MEDS: POTASSIUM Cl (KCl) 20 MEQ in D5W LR 1,000 ML IV SCH (12:57)
--- NOTE | 2019-01-24 15:41 | ASMTCMCOM ---
CM Note CM Note Notes: CM spoke at length with pt's longtime counselor at [facility], Jaime Russell, who reports pt does not have any social supports/ anyone who can act as his proxy. CM provided updates that pt will likely be medically cleared today or tomorrow and then evaluated by [facility] and likely admitted to behavioral health. Jaime Russell felt strongly that he is a support to [place] but cannot act as a healthcare proxy and feels that because he does not have any other supports an MD proxy would be warranted if pt does present to hospital again and is not decisional. Jaime reports that at baseline pt is animated, intelligent, and not social. He keeps to himself but is also loud and somewhat hypomanic. Pt does also see his PCP, Natalya Titus at the [facility], through [facility]. CM to follow. Plan: [facility] Eval once medically stable. Date Signed: 01/24/2019 03:39 PM Electronically Signed By:ETTA Gupta
--- NOTE | 2019-01-24 16:01 | PDINTPN ---
Scada Technician Progress Note Assessment/Plan: 38 M with bipolar disorder and polysubstance abuse admitted 01/19 with intentional depakote OD and methamphetamine abuse requiring intubation, complicated by aspiration pneumonia. * acute respiratory failure with hypoxia and ventilator management- as above with minimal RLL infiltrates on todays CXR. extubated 01/23 without difficulty * aspiration- Remains on Unasyn, which will need clarification for duration. Tm 38.7 after extubation 01/23 but wbc continues to fall * Bipolar d/o- may need psych help given OD. M1 resumed with extubation for suicide attempt. Resume depakote today. Avoid benzos if possible * Altered mental status- as above. * methamphetamine abuse- should be washing out by now- this can be associated with cardiovascular collapse so efforts to minimize stimulation should be followed. * 01/24/19 15:59 Subjective: variable agitation overnight, treated with ativan and haldol Objective: Vital Signs Temp Pulse Resp BP Pulse Ox 37.4 C 79 18 106/70 93 01/24/19 14:00 01/24/19 14:00 01/24/19 14:00 01/24/19 14:00 01/24/19 14:00 Microbiology 01/22/19 11:30 Gram Stain - Final Bronchial Alveolar Lavage - Lung Bronchial Culture - Final Staphylococcus Aureus Laboratory Results 01/24/19 05:45 01/24/19 05:20 01/23/19 01/24/19 01/25/19 05:59 05:59 05:59 Intake Total 2671 2287 Output Total 1900 2700 200 Balance 771 -413 -200 Physical Exam - Physical Exam General Appearance: no apparent distress, obtunded, obese EENT: PERRL/EOMI Neck: supple Respiratory: lungs clear, normal breath sounds, decreased breath sounds, No respiratory distress, No accessory muscle use Cardiac/Chest: regular rate, rhythm, No edema Abdomen: non-tender, soft, No distended Skin: normal color, warm/dry, No cyanosis Lymphatic: no adenopathy Extremities: No pedal edema Neuro/Psych: alert, normal mood/affect, oriented x 3 ICD10 Worksheet Patient Problems: Problems Problem Status Onset Drug overdose, intentional Acute Chest pain Acute
--- NOTE | 2019-01-24 16:04 | HOSPPROG ---
Hospitalist Progress Note Assessment/Plan: 38 yo M w polysubstance abuse here w intentional depakote OD and now resp distress'' aspiration: intubated for airway protection, extubated on 01/23 continue unasyn, Day 5 of likely 7 day course cxr improved S/p Bronch, cultures growing S Aureus fever: continues to be febrile while cxr improved may still be due to aspiration Blood cx drawn on continue abx as above VPA toxicity: levels have peaked, 58 on 01/23 Will restart home Depakote this evening encephalopathy: toxic metabolic Improving, Amphetamine + on admission tachycardia: sinus, improved in setting of meth use as above s/p IVF support SI: on m1 hold, will restart home psych meds this afternoon proph: LMWH dispo: ICU Subjective: Pt sleeping this afternoon Objective: Vital Signs Temp Pulse Resp BP Pulse Ox 37.4 C 76 18 103/60 94 01/24/19 16:00 01/24/19 16:00 01/24/19 16:00 01/24/19 16:00 01/24/19 16:00 Microbiology 01/22/19 11:30 Gram Stain - Final Bronchial Alveolar Lavage - Lung Bronchial Culture - Final Staphylococcus Aureus Laboratory Results 01/24/19 05:45 01/24/19 05:20 01/23/19 01/24/19 01/25/19 05:59 05:59 05:59 Intake Total 2671 2287 Output Total 1900 2700 200 Balance 771 -413 -200 - Physical Exam Constitutional: chronically ill appearing Eyes: PERRL Cardiovascular: regular rate and rhythym Respiratory: no respiratory distress Gastrointestinal: No distension Skin: normal color Neurologic: No AAOx3 Psychiatric: No interacting appropriately ICD10 Worksheet Patient Problems: Problems Problem Status Onset Drug overdose, intentional Acute Chest pain Acute
[2019-01-24] MEDS: ACETAMINOPHEN 325 MG TAB TUBE PRN (18:31)
[2019-01-24] MEDS ORDERED: HYDROCODONE/APAP 5/325 TAB PO PRN (19:42)
[2019-01-24] MEDS: oxyCODONE IR 5 MG TAB PO PRN (20:07)
[2019-01-24] MEDS ORDERED: OLANZapine 5 MG TAB PO SCH (21:00)
[2019-01-25] MEDS: POTASSIUM Cl (KCl) 20 MEQ in D5W LR 1,000 ML IV SCH (03:10)
[2019-01-25] MEDS: oxyCODONE IR 5 MG TAB PO PRN ×3 (04:44→11:58)
[2019-01-25 04:50] LABS: PLATELET COUNT 152 10^3/uL (150-400)
[2019-01-25] MEDS: AMPICILLIN/SULBACTAM 3 GM in NS 100 ML IV SCH ×2 (05:26→11:59)
[2019-01-25] MEDS: FAMOTIDINE 20 MG/NACL 50 ML IV SCH (08:06)
[2019-01-25] MEDS: ENOXAPARIN 40 MG/0.4 ML SYR SC SCH ×2 (08:06→08:09)
[2019-01-25] MEDS ORDERED: IBUPROFEN 200 MG TAB PO PRN (12:58)
--- NOTE | 2019-01-25 13:20 | PDINTPN ---
Lamp Developer Progress Note Assessment/Plan: 38 M with bipolar disorder and polysubstance abuse admitted 01/19 with intentional depakote OD and methamphetamine abuse requiring intubation, complicated by aspiration pneumonia. * acute respiratory failure with hypoxia and ventilator management- extubated without difficulty * aspiration- Remains on Unasyn, with plans to complete 7 days. Tm 38.7 after extubation 01/23 but wbc continues to fall. Afebrile since and WBC normal * Bipolar d/o- resumed depakote and pm olanzapine with excellent effect * Altered mental status- as above. * methamphetamine abuse- should be washing out by now- this can be associated with cardiovascular collapse so efforts to minimize stimulation should be followed. * wrist tenderness likely from wrist restraints. Check xray, ibuprofen as needed 01/24/19 15:59 01/25/19 13:17 01/25/19 13:19 Subjective: much more awake and improved mental status today. C/o left wrist tenderness. Objective: Vital Signs Temp Pulse Resp BP Pulse Ox 37.2 C 75 16 123/74 H 94 01/25/19 08:00 01/25/19 12:00 01/25/19 12:00 01/25/19 12:00 01/25/19 12:00 Microbiology 01/22/19 11:30 Gram Stain - Final Bronchial Alveolar Lavage - Lung Bronchial Culture - Final Staphylococcus Aureus Laboratory Results 01/25/19 04:40 01/25/19 04:40 01/24/19 01/25/19 01/26/19 05:59 05:59 05:59 Intake Total 2287 2429.5 35 Output Total 2700 625 Balance -413 1804.5 35 Physical Exam - Physical Exam General Appearance: alert, no apparent distress, other (cooperative) EENT: PERRL/EOMI Neck: supple Respiratory: lungs clear, normal breath sounds, decreased breath sounds, No respiratory distress, No accessory muscle use Cardiac/Chest: regular rate, rhythm, No edema, No JVD Abdomen: non-tender, soft, No distended Skin: normal color, warm/dry, No cyanosis Lymphatic: no adenopathy Extremities: other (2 cm bruise at right wrist, tender to palp), No pedal edema Neuro/Psych: alert, normal mood/affect, oriented x 3 ICD10 Worksheet Patient Problems: Problems Problem Status Onset Drug overdose, intentional Acute Chest pain Acute
--- NOTE | 2019-01-25 13:27 | ASMTTCLDSP ---
[facility] Discharge Disposition Disposition: Answers: Admit Disposition Notes: Notes: In consultation with [facility] ED on-call Psychiatrist, Aguilar Rosales it was concurred that pt appears to meet 27-65 criteria requiring psychiatric hospitalization as pt appears to be at risk of harm to self due to a mental illness condition. Pt was read the Patient Rights and Responsibilities Statement on 01/25/19 at 13:00, original placed on chart, and was given photocopy of Rights. Pt (signed the Patient Rights. Pt was given the 3[facility] prohibited belongings list while in the ICU. Discharge Concerns/Recommendations: Notes: Pt admit to [facility]. Was patient given the Answers: Yes Inpatient Behavioral Health Prohibited Belongings List while in the ED? For inpatient Aguilar Rosales admission, the following psychiatrist agreed to accept patient for admission to Behavioral Health ([facility]): Type of Hold: Answers: M1/72-hour Hold Hold initiated by: Answers: Other Notes: Hospitalist Date Signed: 01/25/2019 01:26 PM Electronically Signed By:Vee Dueñas
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
--- NOTE | 2019-01-25 15:53 | PDDCSUM ---
Discharge Summary Discharge Summary: Date of Admission: 01/19/2019 Date of Discharge: 01/25/2019 Consults: Critical Care, TLC Procedures: Wrist XR, CXR, Abdominal XR Followup: Behavioral Health, PCP Hospital Course Problem List: 38 yo M w polysubstance abuse here w intentional depakote OD and resp distress aspiration: intubated for airway protection, extubated on 01/23 was on unasyn for 6 days, will complete total 7 day course with Levaquin cxr improved S/p Bronch, cultures growing S Aureus fever: afebrile for past 24 hours likely due to aspiration Blood cx NGTD continue abx as above VPA toxicity: levels have peaked, 58 on 01/23 Restarted home Depakote, defer further management to IP Psych team encephalopathy: toxic metabolic Improved, Amphetamine + on admission tachycardia: sinus, improved in setting of meth use as above s/p IVF support SI: on m1 hold, restarted home psych meds as above L Wrist Pain - Wrist XR negative for acute abnormality - Likely bruising in setting of restraints - Continue Ibuprofen PRN Time spent on discharge was >35 minutes with >50% of time spent on patient education and counseling
[2019-01-25 17:53] VITALS: BP 116/78
--- NOTE | 2019-01-30 13:28 | PQFORM ---
PHYSICIAN QUERY FORM Needs Your Response This query form is being sent to you to assure this patient record is coded properly. Please respond to the question below: DRUM DYEING MACHINE OPERATOR QUESTION: Dear Dr. Perez, Aspiration Pneumonia was documented within the [facility] Notes dated 01/20-01/25, in the 01/21 Chest X-ray, 01/23 Chest X-ray, and the final impression in the 01/22 Flexible Bronchoscopy Report. After study should the diagnosis of "Aspiration Pneumonia" be included in the Discharge Summary? Yes No Other more appropriate diagnosis (Please specify) Clinically unable to determine Thank you MARIANA Borrego HIM/Coding Dept. INSTRUCTIONS FOR RESPONSE: Answer question by clicking on the "Edit Document" button. Move cursor to area below the stars. When complete, hit "Save." Click on the "Sign" button, then click "Sign" again. Type in your PIN and hit "Enter." Yes it should be included in the discharge summary. Thank you. RYAN
== END 2019-01-25 17:54 | DRG 817 ==
LOC: EDUNIT# → F2N 16:32
PROVIDERS: ADMIT Internal Medicine; ATTEND Internal Medicine
PROC: 0BH17EZ Insertion of Endotracheal Airway into Trachea, Via Natural or Artificial Opening (ICD-10-PCS; 2019-01-20)
PROC: 5A1945Z Respiratory Ventilation, 24-96 Consecutive Hours (ICD-10-PCS; 2019-01-20)
PROC: 0B968ZZ Drainage of Right Lower Lobe Bronchus, Via Natural or Artificial Opening Endoscopic (ICD-10-PCS; principal; 2019-01-22)
PROC: 0B9D8ZX Drainage of Right Middle Lung Lobe, Via Natural or Artificial Opening Endoscopic, Diagnostic (ICD-10-PCS; principal; 2019-01-22)
DX: T42.72XA Poisoning by unspecified antiepileptic and sedative-hypnotic drugs, intentional self-harm, initial encounter (principal); J69.0 Pneumonitis due to inhalation of food and vomit; G92 Toxic encephalopathy; R06.03 Acute respiratory distress; F15.129 Other stimulant abuse with intoxication, unspecified; R00.0 Tachycardia, unspecified; M25.532 Pain in left wrist; Z72.89 Other problems related to lifestyle; F31.9 Bipolar disorder, unspecified
CPT/HCPCS: 80305; G0480; J0295; J1630; J1650; J2060; J2370; J2704; J3010; J3480

== ENCOUNTER 2019-01-25 17:50 | Inpatient (IN) | payer MEDICAID ==
[2019-01-25] MEDS ORDERED: NICOTINE POLACRILEX 2 MG GUM B PRN (18:11)
[2019-01-25] MEDS ORDERED: MAGNESIUM HYDROXIDE 30 ML UDCUP PO PRN (18:11)
[2019-01-25] MEDS ORDERED: MAG HYDROX/AL HYDROX/SIMETH 30 ML UDCUP PO PRN (18:11)
[2019-01-26] MEDS: LORazepam 0.5 MG TAB PO PRN ×2 (00:35→18:19)
--- NOTE | 2019-01-26 09:31 | ASMTBHMTP ---
Master Treatment Plan Master Treatment Plan Answers: Depressed Mood with for: Suicidal Ideation Date: 01/26/2019 Diagnosis on Admission: Bipolar I, Depressed D/O 296.53 (F31.4)Amphetamine Substance Use Disorder 304.40 (F15.20) Expected length of stay: 3-5 Reason for admission: Notes: Pt is a 38 year old single, homeless male who has a hx of numerous ED visits due to paranoid delusional thoughts related to substance abuse. For this admission pt had overdosed on his Depakote in an intentional suicide attempt. He was placed on a M1 hold. Pt was admitted to ICU on 01/19/19. Pt has a past hx of polysubstance abuse including alcohol and methamphetamine. Pt is an active client with [facility]. He had presented to [facility] stating he had taken an overdose of his medications and was subsequently brought to the [facility] ED. Per ED report pt had a bottle of Depakote which was filled 2 days prior with 60 tablets. The patient was obtained unresponsive per paramedics. Pt had been encephalopatic and only minimally responsive. Pt require intubation while in ICU. Pt was medically cleared on 4 am and interviewed for TLC evaluation. Patient's stated presenting problems: Notes: "I ingested Zyprexa and Depakote. I don't remember it. I was suicidal when they came to talk to me. A lot of it is related to my Meth use. I'm not feeling myself and decided to end it". Patient's goals for treatment: Notes: "Depakote and Zyprexa made me calm down a lot. I see things in a more calming way now. It's good I'm calm. I'm not desperate anymore". Patient's strengths: Notes: "I'm ambitious. I go out and get what I want". Identify supports outside of hospital: Notes: " No real support. I'm a solitary kind of a person. People at the crisis center know me well. They help me a lot". Discharge criteria: Notes: Suicidal Ideation will be resolved and ct. will have a plan to safely manage recurrent SI. Initial disposition plan/considerations: Notes: Ct. will participate in unit activities. Master Treatment Plan Required Signatures Psychiatrist signature: Answers: Psychiatrist: RN on-shift signature: Answers: RN: Patient signature: Answers: Patient: Date Signed: 01/26/2019 09:30 AM Electronically Signed By:Cortney New
[2019-01-26] MEDS ORDERED: IBUPROFEN 600 MG TAB PO PRN (11:55)
--- NOTE | 2019-01-26 12:07 | ASMTCMCOM ---
CM Note CM Note Notes: CC met with ct. to develop MTP. Ct. was in his room complaining about pain in his foot. CC saw him limping on his way to his room. Grooming is marginal. Ct. was chatty and cooperative. He reported that he feels calmer on the unit. Ct. was seen later on hunched on a couch in the milieu When CC suggested he takes a nap in his room he reported that he likes to be behind locked doors and that he doesn't like being around people. Date Signed: 01/26/2019 12:06 PM Electronically Signed By:Cortney New
[2019-01-26] MEDS: INDOMETHACIN 25 MG CAP PO SCH ×2 (15:53→18:19)
--- NOTE | 2019-01-26 18:08 | PDMN ---
Medical Necessity Medical necessity: Pt meets IP criteria per & LEISA B-[id number]; est los >2 mn for eval/tx of bipolar 1 disorder w/depressed mood following intentional overdose; admit for further monitoring, safety, crisis stabilization & med management; hx homelessness, polysubstance abuse; per CM report & order 01/26/19
--- NOTE | 2019-01-26 18:12 | HOSPPROG ---
Hospitalist Progress Note Assessment/Plan: * Foot pain - 1st MTP - suspicious for gout -check Xray rule out fracture -start Indocin * Pneumonia -last dose Levaquin today * Depakote overdose -on M1 hold - per psych * Toxic encephalopathy -resolved Subjective: Severe foot pain ,1st MTP, denies trauma, can barely walk he is in so much pain Objective: Vital Signs Temp Pulse Resp BP Pulse Ox 37.2 C 90 18 128/73 H 94 01/25/19 18:37 01/26/19 06:00 01/26/19 06:00 01/26/19 06:00 01/26/19 06:00 Medical record reviewed - was admitted to ICU and briefly intubated, developed aspiration PNA, bronch + S aureus Laboratory Tests 01/23/19 01/25/19 09:35 04:40 Hct 38.9 L Valproic Acid 58.0 - Physical Exam Constitutional: no apparent distress, appears nourished, not in pain Cardiovascular: regular rate and rhythym, no murmur, rub, or gallop Respiratory: no respiratory distress, no rales or rhonchi, clear to auscultation Gastrointestinal: normoactive bowel sounds, soft, non-tender abdomen, no palpable masses Skin: no rashes or abrasions, no fluctuance, no induration Musculoskeletal: joint effusion, joint tenderness, pain with ROM, other ( inflamed 1st MTP on left, toe is bruised) Neurologic: AAOx3, sensation intact bilaterally Psychiatric: interacting appropriately, not anxious, not encephalopathic, thought process linear ICD10 Worksheet Patient Problems: Problems Problem Status Onset Chest pain Acute Drug overdose, intentional Acute
--- NOTE | 2019-01-26 20:22 | BHP ---
[f rep st] BEHAVIORAL HEALTH HISTORY AND PHYSICAL DATE OF ADMISSION: 01/25/2019 REASON FOR ADMISSION: Patient is a 38-year-old male with a long history of substance use, primarily methamphetamine, and multiple contacts in the emergency department over time. He has a his tory of becoming psychotic, primarily with paranoid delusions, when he is using methamphetamine and h as presented to the emergency department dozens of times over the years in this state. He presented this time, however, after an intentional overdose of Depakote. He states that he had recently gone t o his outpatient prescriber, Dr. Demetrio Menjivar, and he had prescribed him Zyprexa and Depakote. He sta adri that he was "fed up with life" after he ran out of methamphetamine and ran out of money and state d that he took both bottles in an overdose. He states he does not remember anything else until sever al days later when he woke up in the hospital. He was brought to the hospital in an obtunded state o n 01/19/2019 and hospitalized in the intensive care unit. He was treated there until he was stabiliz ed on 01/25/2019 and transferred to our unit. Today, the patient states that he was not intending to take his medications anyway and that he "probably should take a break from them." He states that he also plans not to use methamphetamines as he realizes it leads to bad things, though he is not inter ested in any specific kinds of rehab. 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 He denies any current psychotic sym ptoms or suicidality and states that he believes he could leave the hospital. He does, however, comp goldy of toe pain and wants to stay in the hospital, at least as long as it takes to see a doctor for that. PAST PSYCHIATRIC HISTORY: Significant for several previous hospitalizations and 2 previous suicide a ttempts. He also has a history of chronic and severe substance abuse. He was last on the behavioral health services unit in April 2013, under the care of Dr. Gisela Emerson. He is followed at [facility], though states that he does not tend to take any medications at this time. ALLERGIES: No known medical allergies. CURRENT MEDICATIONS: None. PAST MEDICAL HISTORY: Significant for the recent overdose. He denies any other active health proble ms. SOCIAL HISTORY: The patient states that he is from [place] but has lived in [place] for the past 8 years. 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 He denies any current legal problems. SUBSTANCE ABUSE HISTORY: Patient states that he uses methamphetamine several times a week if he has the money. He denies any other drug or alcohol use at this time. FAMILY HISTORY: Patient denies. ADMISSION LABORATORY: No additional labs were drawn. Labs from inpatient hospitalization were revie wed. MENTAL STATUS EXAMINATION: Fairly unkempt though healthy-appearing male. He is pleasant, cooperative, and interactive. He makes good eye contact and displays an overall calm and pleasant de meanor. His affect is euthymic, stable and appropriate. His mood is described as "pretty good." Hi s thought process is linear and goal directed. His thought content reveals no evidence of psychosis. He is alert and oriented to person, place, time, and situation, and his sensorium is clear. He den ies any thoughts of suicide, homicide, or violence at this time. His insight and judgment appear to be marginal. IMPRESSION: Recent suicide attempt. Methamphetamine use disorder, severe. History of methamphetami ne-induced psychosis, none currently. Patient is a pleasant 38-year-old male with history of severe substance dependence and rece nt high lethality suicide attempt. He states this time that was something that was essentially impul sive, done at a time when he was coming off methamphetamine and he felt like he had no options. He s tates he is not having those thoughts now and does not believe he needs to be in the hospital. I hav e encouraged him to stay at least long enough to address his medical needs and for us to observe him to make sure we feel like he is safe to go home. He agrees to do this on a voluntary basis. PLAN: 1. Admit to behavioral health services inpatient unit on an M1 hold. 2. Treat supportively and monitor for any recurrent psychosis, monitor his mood, and monitor his myriam cidality. 3. Work with the patient to establish followup with [facility]. 4. Estimated length of stay is 2 to 3 days. /[id number]/MODL
[2019-01-27 06:55] VITALS: BP 128/77
[2019-01-27] MEDS: INDOMETHACIN 25 MG CAP PO SCH ×2 (08:37→12:59)
--- NOTE | 2019-01-27 10:34 | HOSPPROG ---
Hospitalist Progress Note Assessment/Plan: 38 yyo M w depakote OD requiring intubation; c/b aspiration * Foot pain - 1st MTP - suspicious for gout -check Xray rule out fracture -complete 3 day course of indocin * Pneumonia -completed course abx * Depakote overdose -on M1 hold - per psych * Toxic encephalopathy -resolved hosp medicine will sign off; please call w ?'s Subjective: feels well. toe pain much better. no cough Objective: Vital Signs Temp Pulse Resp BP Pulse Ox 36.3 C 83 16 128/77 H 93 01/27/19 06:00 01/27/19 06:00 01/27/19 06:00 01/27/19 06:00 01/27/19 06:00 - Physical Exam Constitutional: no apparent distress, appears nourished Eyes: PERRL, anicteric sclera Ears, Nose, Mouth, Throat: moist mucous membranes, hearing normal Cardiovascular: regular rate and rhythym, no murmur, rub, or gallop Respiratory: no respiratory distress, no rales or rhonchi Gastrointestinal: normoactive bowel sounds, soft, non-tender abdomen Genitourinary: No bergeron in urethra Skin: warm, normal color Musculoskeletal: full muscle strength, other (L great toe normal) Neurologic: AAOx3 ICD10 Worksheet Patient Problems: Problems Problem Status Onset Chest pain Acute Drug overdose, intentional Acute
--- NOTE | 2019-01-27 12:04 | ASMTBHDC ---
Notes Note: Notes: Pt. reports "feel fine". Pt. reports his foot feeling better. Pt. stated his gout medications have been very helpful, and requested to leave with either a few days of medication or a prescription. Pt. reports he slept "good". Pt. moved his bed from the bed frame to the bench near the window, stating he was "more comfortable" and wanted to look out the window. Pt. reports getting enough to eat and stated he is "not a group carlos". Pt. reports no issues with his medication, adding his "medication worked really well". Pt. reports completing a safety plan. Pt. denied SI, HI, AVH and paranoia. Pt. reports being able to get to his follow up appointments and able to fill his medications. Pt. denied needing a bus ticket or cab ride. Pt. presents as alert, calm, positive affect, somewhat groomed, good eye contact, and cooperative. Staff report pt. sleeping 8 hours and being medication compliant. Pt. has follow up appointments on 01/27 at 4:30, 01/30 at 2:45, 02/06 at 11:15. Date Signed: 01/27/2019 12:03 PM Electronically Signed By:Herminia Cortez
--- NOTE | 2019-01-27 17:00 | BDS ---
[f rep st] BEHAVIORAL HEALTH DISCHARGE SUMMARY REASON FOR ADMISSION: Patient is a 38-year-old male with a long history of possible bipola r disorder but also substance dependence. His drug of choice is methamphetamine. He stated he had b een on a several-day binge and had run out of methamphetamine and money. He stated that he was sitti ng outside and did not have his sunglasses and felt despondent. He states that he then impulsively t ook an overdose "to see what would happen" and then "woke up in the hospital." He, in fact, took a f airly high overdose of both Zyprexa and Depakote and ended up intubated in the ICU for several days. Once he was medically cleared, he was transferred to the [facility] inpatient unit f or further evaluation and treatment. A full description of the events preceding admission can be fou nd in his admission history dated 01/26/2019. ADMITTING DIAGNOSES: Recent suicide attempt; methamphetamine use disorder, severe; history of metham phetamine-induced psychosis, none currently. No admitting physical examination or labs as he was recently inpatient. HOSPITAL COURSE: Patient was admitted to [facility] inpatient unit on an M1 hold. Slime cross was pleasant, cooperative, and interactive. He was actually kind of jovial, stating that he believ ed that this suicide attempt was fate and that it was essentially a test of sorts to see if he wanted to continue to live. He stated that he in fact did want to continue to live and that the whole near experience reinforced this for him. He stated as such he was ready to leave the hospital. I stated to him that he was not able to leave the hospital for at least another 24 hours when his hold , and he was accepting of that. I then later found out that the hold in the evening o f the same day he was admitted, and he stated he was agreeable to staying at least overnight. One of his primary concerns was that he had excruciating pain in his left big toe, which was new to him, an d wanted to see the habitat conservation planner. The habitat conservation planner believed that he had gout and prescribed indomethacin, which was tremendously helpful. I then saw the patient the next day as well, and he was interviewed in the treatment team meeting, and he recanted the same story. He displayed a euthymic, stable, and appropriate affect. Stated adamantly that he had no desire to kill himself and he felt like he would not do this again. He stated also that he believed that if he stayed away from the methamphetamine and alcohol that he would not need to take psychotropic medications. Given the proximity to his rece nt overdose, I agreed that he could stay off the Depakote and Zyprexa for the time being, but he also agreed to follow up with his outpatient provider, Dr. Demetrio Menjivar, at [facility] to discuss this further in the near future. Appointments were made with [facility] by the early breastfeeding care specialist. CONDITION ON DISCHARGE: Stable. His affect was euthymic, stable, and appropriate. He was displayin g no evidence of psychosis and denied any suicidal thoughts. DISCHARGE MEDICATIONS: Indomethacin 25 mg t.i.d. with meals for several more days. DISCHARGE DIAGNOSES: Recent high lethality overdose; methamphetamine use disorder, severe; alcohol u se disorder, severe; homelessness; chronic illness with primary emphasis on substance dependence; lac k of social supports. DISPOSITION: Patient left the hospital of his own accord. FOLLOWUP: With [facility] as provided in writing to him by the early breastfeeding care specialist. There are no pending labs or studies at time of discharge. Patient's attitude at discharge is positive. Patient was converted to voluntary status at the expiration of his M1 hold. Patient was administered nicotine, tobacco, metabolic, and cannabis screens at the time of discharge and declined any further specific followup. Brief interventions were done for each of these by me. Patient was a full code throughout his stay. /[id number]/MODL
== END 2019-01-27 13:40 | disposition home or self-care (01) | DRG 862 ==
LOC: BBEH 17:50
PROVIDERS: ADMIT Psychiatry & Neurology Psychiatry; ATTEND Psychiatry & Neurology Psychiatry
DX: T42.6X2D Poisoning by other antiepileptic and sedative-hypnotic drugs, intentional self-harm, subsequent encounter (principal); F15.20 Other stimulant dependence, uncomplicated; Z59.0 Homelessness; M10.9 Gout, unspecified

== ENCOUNTER 2019-01-28 04:34 | Emergency (ER) | payer MEDICAID ==
[2019-01-28 04:40] VITALS: BP 129/60
--- NOTE | 2019-01-28 04:46 | EDPHY ---
H & P Stated Complaint: Gout Pain Time Seen by Provider: 01/28/19 04:46 HPI/ROS: HPI CHIEF COMPLAINT: "I need my Gout medication." HISTORY OF PRESENT ILLNESS: Patient 38-year-old male, presents emergency room with left great MTP pain and swelling or redness. He states that he just was discharged from the hospital the psychiatric aviles for suicide attempt. He denies being suicidal. He states that he did not get a chance to get his gout medication filled at discharge. He is requesting a dose of indomethacin. He has a prescription for indomethacin 25 mg that we explain he should be able to get filled tomorrow. For tonight given that is 5:00 a.m. In the morning will give him 1 dose of indomethacin. I discussed return precautions return emergency room if worsening symptoms questions or concerns. Describes worsening pain, redness, swelling, fever. Past Medical History: Gout, bipolar disorder Past Surgical History: No recent surgery Social History: He denies drugs alcohol tobacco. Family History: Noncontributory ROS REVIEW OF SYSTEMS: 10 Systems were reviewed and negative with the exception of the elements mentioned in the history of present illness. Exam Constitutional triage nursing summary reviewed, vital signs reviewed, awake/ alert. Eyes normal conjunctivae and sclera, EOMI, PERRLA. HENT normal inspection, atraumatic, moist mucus membranes, no epistaxis, neck supple/ no meningismus, no raccoon eyes. Respiratory clear to auscultation bilaterally, normal breath sounds, no respiratory distress, no wheezing. Cardiovascular rate normal, regular rhythm, no murmur, no edema, distal pulses normal. Gastrointestinal soft, non-tender, no rebound, no guarding, normal bowel sounds, no distension, no pulsatile mass. Genitourinary no CVA tenderness. Musculoskeletal left great toe: A mild swelling, redness tenderness to the 1st MTP joint, he states been like this for few days and diagnosed with gout. Otherwise neurovascular intact. no midline vertebral tenderness, full range of motion, no calf swelling, no tenderness of extremities, no meningismus, good pulses, neurovascularly intact. Skin pink, warm, & dry, no rash, skin atraumatic. Neurologic awake, alert and oriented x 3, AAOx3, moves all 4 extremities equally, motor intact, sensory intact, CN II-XII intact, normal cerebellar, normal vision, normal speech. Psychiatric normal mood/affect. Heme/Lymph/Immune no lymphadenopathy. Differential Diagnosis: Includes but is not limited to in a particular order gout, septic joint Medical Decision Making: Plan for the patient and meth this in 25 mg 1st dose in the emergency room. I do recommend he gets prescription feel that was provided for him. We discussed return precautions. Source: Patient - Personal History Current Tetanus/Diphtheria Vaccine: Yes Current Tetanus Diphtheria and Acellular Pertussis (TDAP): Yes Tetanus Vaccine Date: 01/30/13 - Medical/Surgical History Hx Asthma: No Hx Chronic Respiratory Disease: No Hx Diabetes: No Hx Cardiac Disease: No Hx Renal Disease: No Hx Cirrhosis: No Hx Alcoholism: Yes Hx HIV/AIDS: No Hx Splenectomy or Spleen Trauma: No Other PMH: BIPOLAR, ANXIETY, etoh w/d seizures - Social History Smoking Status: Never smoked Constitutional: Initial Vital Signs Temperature (C) 36.8 C 01/28/19 04:37 Heart Rate 89 01/28/19 04:37 Respiratory Rate 18 01/28/19 04:37 Blood Pressure 129/60 H 01/28/19 04:37 O2 Sat (%) 98 01/28/19 04:37 O2 Delivery Mode Room Air Allergies/Adverse Reactions: No Known Allergies Allergy (Verified 01/28/19 04:36) Home Medications: Medication Instructions Recorded Indomethacin [Indocin 25 mg (*)] 25 mg PO TIDMEAL #15 cap 01/27/19 Departure - Departure Disposition: Home, Routine, Self-Care Clinical Impression: Gout Condition: Good Instructions: Gout (ED), Low Purine Diet (ED) Additional Instructions: 1. Please follow up with your doctor 2. Return to the emergency room if you have worsening pain swelling questions or concerns. Referrals: Natalya Titus, PAC [Primary Care Provider] - As per Instructions
[2019-01-28] MEDS ORDERED: INDOMETHACIN 25 MG CAP PO ONE (04:50)
== END 2019-01-28 05:11 | disposition home or self-care (01) ==
DX: M10.9 Gout, unspecified (principal)

== ENCOUNTER 2019-02-26 08:58 | Emergency (ER) | payer MEDICAID | END 2019-02-26 10:12 | disposition home or self-care (01) ==